=== PATIENT | female | born 1990 | race Caucasian/White ===

== ENCOUNTER 2018-06-10 13:27 | Emergency (ER) | payer MEDICAID ==
--- NOTE | 2018-06-10 13:54 | EDM.PDOC ---
ED HPI GENERAL MEDICAL PROBLEM - General Chief Complaint: ENT Problem Stated Complaint: COUGH AND SORE THROAT Time Seen by Provider: 06/10/18 13:39 Source of Information: Reports: Patient, RN Notes Reviewed History Limitations: Reports: No Limitations - History of Present Illness INITIAL COMMENTS - FREE TEXT/NARRATIVE: Patient is a 27-year-old female who presents to the ED today for the evaluation of a cough/sore throat. She states this is been going on for 1 week now. She states that her throat feels dry and has some sharp stabbing pains with this. She has also had a cough in conjunction with this. This is a dry cough. This is present most of the time it is not necessarily worsened by anything. She states she has not had a fever at home but has felt some hot/cold flashes. She has not get any sputum up with a cough, she further denies any chest pain or stomach pain. She notes some mild shortness of breath after the coughing but nothing that is too severe. She has been taking some DayQuil for this and it seems to help with some of the aches. She does not have any allergies to medications. She is a smoker with a half pack per day smoking history for 10 years. She would rate her pain at a 4 out of 10. Throat Pain Score (Numeric/FACES): 4 - Related Data Allergies Allergy/AdvReac Type Severity Reaction Status Date / Time No Known Allergies Allergy Verified 06/10/18 13:48 Home Meds: Home Meds FLUoxetine [PROzac] 20 mg PO BEDTIME 06/10/18 [History] lamoTRIgine [Lamotrigine] 400 mg PO DAILY 06/10/18 [History] ED ROS ENT - Review of Systems Review Of Systems: See Below Constitutional: Reports: Malaise. Denies: Fever, Chills HEENT: Reports: No Symptoms Respiratory: Reports: Shortness of Breath, Cough. Denies: Wheezing, Sputum Cardiovascular: Reports: No Symptoms Endocrine: Reports: No Symptoms GI/Abdominal: Reports: No Symptoms : Reports: No Symptoms Musculoskeletal: Reports: No Symptoms Skin: Reports: No Symptoms Neurological: Reports: No Symptoms Psychiatric: Reports: No Symptoms Hematologic/Lymphatic: Reports: No Symptoms Immunologic: Reports: No Symptoms ED EXAM, ENT - Physical Exam Exam: See Below Exam Limited By: No Limitations General Appearance: Alert, WD/WN, No Apparent Distress Eye Exam: Bilateral Eye: EOMI, Normal Inspection, PERRL Ears: Normal External Exam, Normal Canal, Hearing Grossly Normal, Normal TMs Nose: Normal Inspection, No Blood, Clear Rhinorrhea, Injected Turbinates (right sided) Mouth/Throat: Normal Inspection, Normal Gums, Normal Lips, Normal Oropharynx, Normal Teeth Head: Atraumatic, Normocephalic Neck: Normal Inspection, Supple, Non-Tender, Full Range of Motion Respiratory/Chest: No Respiratory Distress, Lungs Clear, Normal Breath Sounds, No Accessory Muscle Use, Chest Non-Tender Cardiovascular: Normal Peripheral Pulses, Regular Rate, Rhythm, No Murmur GI/Abdominal: Normal Bowel Sounds, Soft, Non-Tender, No Distention, No Mass Extremities: Normal Inspection, Normal Capillary Refill Neurological: Alert, Oriented, Normal Cognition, Normal Gait, No Motor/Sensory Deficits Psychiatric: Normal Affect, Normal Mood Skin: Warm, Dry, Intact, Normal Color, No Rash Course - Vital Signs Last Recorded V/S: Last Vital Signs Temp 98.8 F 06/10/18 13:44 Pulse 97 06/10/18 13:44 Resp 18 06/10/18 13:44 BP 126/91 H 06/10/18 13:44 Pulse Ox 95 06/10/18 13:44 - Orders/Labs/Meds Orders: Active Orders 24 hr Category Date Time Status CULTURE STREP A CONFIRMATION [] Stat Lab 06/10/18 13:50 Results STREP SCRN A RAPID W CULT CONF [RM] Stat Lab 06/10/18 13:50 Received - Re-Assessments/Exams Free Text/Narrative Re-Assessment/Exam: 06/10/18 14:16 Patient presents to the ED for the evaluation of a sore throat, cough area and a strep swab was obtained by triage nurse in the off chance she may have a strep infection, however, I believe that her sore throat may be due to her sinus drainage with postnasal drip and cough. We will discharge her home with general recommendations after we get the results of the strep swab. Departure - Departure Time of Disposition: 14:17 Disposition: Home, Self-Care 01 Condition: Fair Clinical Impression: Viral URI with cough, Sore throat (viral) - Discharge Information *PRESCRIPTION DRUG MONITORING PROGRAM REVIEWED*: No *COPY OF PRESCRIPTION DRUG MONITORING REPORT IN PATIENT OCTAVIO: No Instructions: Viral Respiratory Infection, [id number], Sore Throat, Easy-to- Read Referrals: PCP,Not In Area [Primary Care Provider] - Forms: ED Department Discharge Additional Instructions: You have been evaluated in the ED today for your cold like symptoms, cough, sore throat. This is likely a viral illness in etiology. Your strep screen was negative however it will be sent for culture for confirmation. You will be notified if you need further treatment for this. Please increase your fluid intake. Get plenty of rest as well. You should feel better in a few days. Recommend that you take some ldjh-vqk-[id number] nasal decongestants, cough/cold remedies to combat this. Medicines like NyQuil, DayQuil, phenylephrine and other sinus decongestants are adequate. If your symptoms are not better in one week's time recommend that you follow up in a clinic or your primary care provider. Please return to the ED if your symptoms change or worsen. - My Orders Last 24 Hours: My Active Orders 06/10/18 13:50 CULTURE STREP A CONFIRMATION [RM] Stat STREP SCRN A RAPID W CULT CONF [RM] Stat - Assessment/Plan Last 24 Hours: My Active Orders 06/10/18 13:50 CULTURE STREP A CONFIRMATION [RM] Stat STREP SCRN A RAPID W CULT CONF [RM] Stat
== END 2018-06-10 14:40 | disposition home or self-care (01) ==
LOC: JD.ED 13:27
DX: J02.9 Acute pharyngitis, unspecified (principal); Z79.899 Other long term (current) drug therapy
CPT/HCPCS: 87081; 87430; 99282; 99283

== ENCOUNTER 2018-06-17 04:30 | Emergency (ER) | payer MEDICAID ==
--- NOTE | 2018-06-17 04:55 | EDM.PDOC ---
ED HPI GENERAL MEDICAL PROBLEM - General Chief Complaint: ENT Problem Stated Complaint: sore throat cough congestion Time Seen by Provider: 06/17/18 04:39 Source of Information: Reports: Patient, Old Records (ED visit 06/10/2018) History Limitations: Reports: No Limitations - History of Present Illness INITIAL COMMENTS - FREE TEXT/NARRATIVE: Medical records indicate that the patient was seen in this ED one week ago today , 06/10/2018 with a complaint at that time of dry cough and sore throat for 1 week. She had not had a fever. Rapid strep test was negative, and she was discharged home with recommendation that she take gdbm-alb-lfyvczm cough and cold remedies. The patient now returns stating that her sore throat and cough have persisted, and that her sore throat got worse last night. She states that it is painful for her to swallow. She has had occasional ear pain, but no decreased hearing. She has still not had a fever. No nausea or abdominal pain. She states that she has been taking DayQuil, NyQuil, and Chloraseptic spray, without any relief. The patient states that she has tested positive for strep throat 4 or 5 times in the past. The patient does not have a PCP. Throat Pain Score (Numeric/FACES): 9 - Related Data Allergies Allergy/AdvReac Type Severity Reaction Status Date / Time No Known Allergies Allergy Verified 06/10/18 13:48 Home Meds: Home Meds FLUoxetine [PROzac] 20 mg PO BEDTIME 06/10/18 [History] lamoTRIgine [Lamotrigine] 400 mg PO DAILY 06/10/18 [History] Past Medical History Psychiatric History: Reports: Bipolar, Depression Endocrine/Metabolic History: Reports: Obesity/BMI 30+ - Past Surgical History HEENT Surgical History: Reports: Oral Surgery (wisdom teeth extraction) Female Surgical History: Reports: Oophorectomy (right) Social & Family History - Family History Family Medical History: Noncontributory - Tobacco Use Smoking Status *Q: Current Every Day Smoker Years of Tobacco use: 17 Packs/Tins Daily: 0.5 Packs/Tins Daily Comment: Down from 1 ppd - Caffeine Use Caffeine Use: Reports: Coffee, Tea - Alcohol Use Alcohol Use History: Yes Alcohol Use Frequency: Socially - Recreational Drug Use Recreational Drug Use: Yes Drug Use in Last 12 Months: No Recreational Drug Type: Reports: Cocaine (last snorted and smoked in 2005), Marijuana/Hashish (last smoked in 2005), Methamphetamine (last smoked in 2005) - Living Situation & Occupation Living situation: Reports: , with Spouse, with Family (3 kids) Occupation: Unemployed ED ROS GENERAL - Review of Systems Review Of Systems: ROS reveals no pertinent complaints other than HPI. ED EXAM, GENERAL - Physical Exam Exam: See Below Exam Limited By: No Limitations General Appearance: Alert, WD/WN, No Apparent Distress Eye Exam: Bilateral Eye: EOMI, Normal Inspection Ears: Normal External Exam, Normal Canal, Hearing Grossly Normal, Normal TMs Nose: Normal Inspection, Normal Mucosa, No Blood Throat/Mouth: Normal Inspection, Normal Lips, Normal Teeth, Normal Gums, Normal Oropharynx (No oropharyngeal erythema or swelling. No tonsillar exudates.), Normal Voice, No Airway Compromise Head: Atraumatic, Normocephalic Neck: Normal Inspection, Supple, Non-Tender, Full Range of Motion. No: Lymphadenopathy (L), Lymphadenopathy (R) Respiratory/Chest: No Respiratory Distress, Lungs Clear, Normal Breath Sounds, No Accessory Muscle Use Cardiovascular: Normal Peripheral Pulses, Regular Rate, Rhythm, No Gallop, No JVD, No Murmur, No Rub Peripheral Pulses: 4+: Radial (L), Radial (R) GI/Abdominal: Normal Bowel Sounds, Soft, Non-Tender, No Organomegaly, No Distention, No Abnormal Bruit, No Mass, Other (Obese) (Female) Exam: Deferred Rectal (Female) Exam: Deferred Back Exam: Normal Inspection, Full Range of Motion, NT Extremities: Normal Inspection, Normal Range of Motion, No Pedal Edema, Normal Capillary Refill Neurological: Alert, Oriented, Normal Cognition, No Motor/Sensory Deficits Psychiatric: Normal Affect Skin Exam: Warm, Dry, Intact, Normal Color, No Rash Course - Vital Signs Last Recorded V/S: Last Vital Signs Temp 36.5 C 06/17/18 04:41 Pulse 95 06/17/18 04:41 Resp 18 06/17/18 04:41 BP 157/100 H 06/17/18 04:41 Pulse Ox 95 06/17/18 04:41 - Orders/Labs/Meds Meds: Medications Discontinued Medications Generic Name Dose Route Start Last Admin Trade Name Freq PRN Reason Stop Dose Admin Penicillin G Benzathine 1.2 millunits 06/17/18 05:17 Bicillin L-A IM 06/17/18 05:18 ONETIME ONE - Re-Assessments/Exams Free Text/Narrative Re-Assessment/Exam: 06/17/18 05:24 The patient's rapid strep test has returned positive. I have ordered 1.2 million units of penicillin G benzathine. Because the patient states that she has had strep throat 4 or 5 times in the past, it is very possible that she is a strep carrier. I will therefore refer the patient to the clinic, with the recommendation that she have a repeat strep test in about 2 weeks, when she is feeling better. If that strep test returns positive, she is most likely a carrier, and should be referred to an Industrial Machine Operator for tonsillectomy. Departure - Departure Time of Disposition: 05:26 Disposition: Home, Self-Care 01 Condition: Fair Clinical Impression: Streptococcal pharyngitis - Discharge Information *PRESCRIPTION DRUG MONITORING PROGRAM REVIEWED*: Not Applicable *COPY OF PRESCRIPTION DRUG MONITORING REPORT IN PATIENT OCTAVIO: Not Applicable Referrals: Pato Luke PA [Physician Baking Assistant] - Forms: ED Department Discharge Additional Instructions: You were seen in the emergency room for a persistent sore throat and dry cough. Workup in the ER included a rapid strep test, which returned positive for strep throat. You were treated with an injection of penicillin G benzathine in the ER, which is a one-time treatment for strep throat. Take iins-rfx-[id number] ibuprofen, 2-3 tablets (400-600 mg) every 8 hours, with food, as needed for throat discomfort. You may also gargle with warm salt water. Because you have had strep throat 4 or 5 times in the past, we recommend that you follow-up with Dre Luke, or one of the other providers in the clinic, in approximately 2 weeks, when you are feeling better, to undergo a repeat strep test (make sure they swab your tonsils, not your throat). If that test returns positive, you are most likely a strep carrier, and should be referred to an Industrial Machine Operator for tonsillectomy. If any other problems, please do not hesitate to return to the ER.
[2018-06-17] MEDS ORDERED: Penicillin G Benzathine 1,200,000 Units/2 ML Syringe IM ONE (05:17)
== END 2018-06-17 05:40 | disposition home or self-care (01) ==
LOC: JD.ED 04:30
DX: J02.0 Streptococcal pharyngitis (principal); F17.210 Nicotine dependence, cigarettes, uncomplicated; Z79.899 Other long term (current) drug therapy
CPT/HCPCS: 87430; 96372; 99283; J0561

== ENCOUNTER 2018-08-15 07:49 | Inpatient (IN) | payer MEDICAID ==
[2018-08-15] MEDS ORDERED: Ondansetron 4 MG/2 ML SDV IVPUSH ONE (08:19)
--- NOTE | 2018-08-15 08:19 | EDM.PDOC ---
ED HPI GENERAL MEDICAL PROBLEM - General Chief Complaint: Abdominal Pain Stated Complaint: FEVER,VOMITING,ABDOMINAL PAIN Time Seen by Provider: 08/15/18 08:11 Source of Information: Reports: Patient History Limitations: Reports: No Limitations - History of Present Illness INITIAL COMMENTS - FREE TEXT/NARRATIVE: 27-year-old female presents to the ED with a history of fever and chills since August 12. She woke around 0430 hrs. this morning with spontaneous nausea and vomiting at least 5-6 times with some flecks of blood evident in the emesis the last 2 times. Emesis was for the most part ileus. Had no diarrhea. She's had diffuse mid and lower abdominal pain for the last 2 days. She can walk okay. Denies development of any diarrhea. Denies cough or sputum production. She is not been hardly able to eat much at all for 2 days. She feels lightheaded and dizzy upon standing. She states is a possibility she could be . Not real sure when her last normal menstrual period was. Is abdominal surgery was a right oophorectomy. Current pain is mostly right lower quadrant of the abdomen. Denies any dysuria urgency or frequency in the last week or 10 days. Onset: Sudden Onset Date: 08/12/18 (Acute onset of fever and chills.) Duration: Day(s):, Getting Worse, Waxing/Waning Location: Reports: Abdomen (Nausea vomiting of bilious material repetitively this morning with some flecks of blood. Right lower quadrant abdominal pain.) Quality: Reports: Other (Pain in the right lower quadrant is constant no colicky component.) Severity: Moderate Improves with: Reports: Rest Worsens with: Reports: Other (Worsens with vomiting.) Context: Reports: Other. Denies: Activity, Exercise, Lifting, Sick Contact, Trauma Associated Symptoms: Reports: Fever/Chills, Headaches (With riders.), Loss of Appetite, Malaise, Nausea/Vomiting (Bilious emesis 5 or 6 this morning with some flecks of blood in the last 2 emeses.), Weakness, Other. Denies: No Other Symptoms, Confusion, Chest Pain, Cough (Spontaneous occurrence.), cough w sputum , Diaphoresis, Rash, Seizure, Shortness of Breath, Syncope Treatments PEDIATRIC DERMATOLOGIST: Reports: Other (see below) (Very lightheaded and dizzy upon standing none.) Upper Abdominal Pain Score (Numeric/FACES): 3 - Related Data Allergies Allergy/AdvReac Type Severity Reaction Status Date / Time No Known Allergies Allergy Verified 08/15/18 08:07 Home Meds: Home Meds FLUoxetine [PROzac] 20 mg PO BEDTIME 06/10/18 [History] lamoTRIgine [Lamotrigine] 400 mg PO DAILY 06/10/18 [History] Past Medical History - Past Health History Medical/Surgical History: Denies Medical/Surgical History Psychiatric History: Reports: Bipolar, Depression Endocrine/Metabolic History: Reports: Obesity/BMI 30+ - Past Surgical History HEENT Surgical History: Reports: Oral Surgery Female Surgical History: Reports: Oophorectomy Social & Family History - Family History Family Medical History: Noncontributory - Tobacco Use Smoking Status *Q: Current Every Day Smoker Years of Tobacco use: 10 Packs/Tins Daily: 0.5 - Caffeine Use Caffeine Use: Reports: Coffee, Soda - Recreational Drug Use Recreational Drug Use: No - Living Situation & Occupation Living situation: Reports: , with Spouse, with Family (3 kids) Occupation: Unemployed ED ROS GENERAL - Review of Systems Review Of Systems: See Below Constitutional: Reports: Fever, Chills, Malaise, Weakness, Fatigue, Decreased Appetite, Weight Loss HEENT: Reports: Other Respiratory: Reports: No Symptoms (Dry mouth.) Cardiovascular: Reports: No Symptoms, Lightheadedness. Denies: Dyspnea on Exertion, Edema, Orthopnea, Palpitations, Syncope, Other Endocrine: Reports: Fatigue GI/Abdominal: Reports: Abdominal Pain (Epigastric and right lower quadrant of the abdomen.), Decreased Appetite, Nausea, Vomiting. Denies: Constipation, Diarrhea, Distension, Flatus, Hematemesis, Hematochezia, Other : Reports: No Symptoms Musculoskeletal: Reports: Muscle Pain (Generalized myalgia.) Skin: Reports: No Symptoms Neurological: Reports: Dizziness (With standing.), Weakness (Generalized weakness) Psychiatric: Reports: Other Hematologic/Lymphatic: Reports: No Symptoms Immunologic: Reports: No Symptoms ED EXAM, GI/ABD - Physical Exam Exam: See Below Exam Limited By: No Limitations General Appearance: Alert, WD/WN, No Apparent Distress, Other (She is cool to touch.) Eyes: Bilateral: Normal Appearance (No scleral icterus. No pallor) Throat/Mouth: Other (Tongue is extremely.dry and coated white.) Head: Atraumatic, Normocephalic Neck: Normal Inspection, Supple, Non-Tender, Full Range of Motion. No: Lymphadenopathy (L), Lymphadenopathy (R) Respiratory/Chest: No Respiratory Distress, Lungs Clear, Normal Breath Sounds, No Accessory Muscle Use, Chest Non-Tender Cardiovascular: Normal Peripheral Pulses, Regular Rate, Rhythm, No Edema, No Gallop, No Murmur, No Rub, Tachycardia (Resting tachycardia of 1 12/m.) GI/Abdominal Exam: Soft, No Organomegaly, No Distention, Tender, Abnormal Bowel Sounds (Bowel sounds are few and far between.). No: Guarding, Rigid ( Tenderness right lower quadrant abdomen with mild guarding. This is particularly noted at McBurney's point.), Rebound Back Exam: Normal Inspection, Full Range of Motion. No: CVA Tenderness (L), CVA Tenderness (R) Extremities: Normal Inspection, Normal Range of Motion, Non-Tender Neurological: Alert, Oriented, CN II-XII Intact, Normal Cognition Psychiatric: Normal Affect, Normal Mood Skin Exam: Dry, Intact, Normal Color, Cool (Cool to touch.) Course - Vital Signs Last Recorded V/S: Last Vital Signs Temp 36.9 C 08/15/18 08:04 Pulse 108 H 08/15/18 08:04 Resp 16 08/15/18 08:04 BP 107/84 08/15/18 08:04 Pulse Ox 96 08/15/18 08:04 Orthostatic Blood Pressure [ 107/69 Standing] Orthostatic Blood Pressure [ 103/64 Sitting] Orthostatic Blood Pressure [ 104/66 Supine] - Orders/Labs/Meds Orders: Active Orders 24 hr Category Date Time Status Admission Status [Patient Status] [ADT] Routine ADT 08/15/18 12:24 Active Orthostatic Vital Signs [RC] ASDIRECTED Care 08/15/18 08:29 Active CULTURE BLOOD [BC] Stat Lab 08/15/18 09:02 Received CULTURE BLOOD [BC] Stat Lab 08/15/18 09:12 Received CYTOMEGALOVIRUS (CMV) AB, IGM [REF] Stat Lab 08/15/18 11:00 Received EBV ACUTE INFECTION ANTIBODIES [REF] Stat Lab 08/15/18 12:35 Received HEPATITIS C ANTIBODY [CHEM] Stat Lab 08/15/18 09:02 Received HEPATITIS PANEL (4) [REF] Stat Lab 08/15/18 11:00 Received LIPASE [CHEM] Stat Lab 08/15/18 09:02 Received Dextrose 5%-0.9% NaCl [Dextrose 5%-Normal Saline] 1,000 Med 08/15/18 08:30 Active ml IV ASDIRECTED Dextrose 5%-Lact Ringers w/KCl [D5 LR with 20 mEq KCl] Med 08/15/18 12:30 Active 1,000 ml IV ASDIRECTED Dextrose 5%-Lactated Ringers 1,000 ml Med 08/15/18 10:45 Active IV ASDIRECTED Blood Culture x2 Reflex Set [OM.PC] Stat Oth 08/15/18 08:22 Ordered Medication Orders Dextrose/Sodium Chloride (Dextrose 5%-Normal Saline) 1,000 mls @ 999 mls/hr IV ASDIRECTED ROBEL Last Admin: 08/15/18 08:37 Dose: 999 mls/hr Dextrose/Lactated Ringer's (Dextrose 5%-Lactated Ringers) 1,000 mls @ 500 mls/ hr IV ASDIRECTED ROBEL Last Admin: 08/15/18 12:45 Dose: 500 mls/hr Potassium Cl/Dextrose/Lact Ringer's (D5 Lr With 20 Meq Kcl) 1,000 mls @ 150 mls /hr IV ASDIRECTED ROBEL Labs: Laboratory Tests 08/15/18 08/15/18 08/15/18 Range/Units 08:35 08:35 08:35 WBC 3.20 L (3.98-10.04) K/mm3 RBC 4.78 (3.98-5.22) M/mm3 Hgb 14.0 (11.2-15.7) gm/L Hct 42.2 (34.1-44.9) % MCV 88.3 (79.4-94.8) fl MCH 29.3 (25.6-32.2) pg MCHC 33.2 (32.2-35.5) g/dl RDW Std Deviation 45.2 (36.4-46.3) fL Plt Count 131 L (182-369) K/mm3 MPV 9.1 L (9.4-12.3) fl Neutrophils % (Manual) 75 H (40-60) % Band Neutrophils % 0 (0-10) % Lymphocytes % (Manual) 8 L (20-40) % Atypical Lymphs % 0 % Monocytes % (Manual) 15 H (2-10) % Eosinophils % (Manual) 2 (0.7-5.8) % Basophils % (Manual) 0 L (0.1-1.2) Platelet Estimate Adequate RBC Morph Comment Normal Sodium 137 (136-145) mEq/L Potassium 3.9 (3.5-5.1) mEq/L Chloride 103 (98-107) mEq/L Carbon Dioxide 22 (21-32) mEq/L Anion Gap 15.9 H (5-15) BUN 10 (7-18) mg/dL Creatinine 0.9 (0.55-1.02) mg/dL Est Cr Clr Drug Dosing 79.64 mL/min Estimated GFR (MDRD) > 60 (>60) mL/min BUN/Creatinine Ratio 11.1 L (14-18) Glucose 100 (74-106) mg/dL Lactic Acid (0.4-2.0) mmol/L Calcium 8.3 L (8.5-10.1) mg/dL Magnesium 1.7 L (1.8-2.4) mg/dl Total Bilirubin 0.5 (0.2-1.0) mg/dL AST 3682 H (15-37) U/L ALT 4248 H (14-59) U/L Alkaline Phosphatase 98 (46-116) U/L C-Reactive Protein 7.8 H* (<1.0) mg/dL Total Protein 7.0 (6.4-8.2) g/dl Albumin 3.1 L (3.4-5.0) g/dl Globulin 3.9 gm/dL Albumin/Globulin Ratio 0.8 L (1-2) HCG, Qual Negative (NEGATIVE) Urine Color (Yellow) Urine Appearance (Clear) Urine pH (5.0-8.0) Ur Specific [place] (1.005-1.030) Urine Protein (Negative) Urine Glucose (UA) (Negative) Urine Ketones (Negative) Urine Occult Blood (Negative) Urine Nitrite (Negative) Urine Bilirubin (Negative) Urine Urobilinogen (0.2-1.0) Ur Leukocyte Esterase (Negative) Urine RBC (0-5) /hpf Urine WBC (0-5) /hpf Ur Epithelial Cells (0-5) /hpf Urine Bacteria (FEW) /hpf Urine Mucus (FEW) /hpf Acetaminophen (10-30) ug/mL Ketones (0.0-0.3) mM Monoscreen (NEGATIVE) 08/15/18 08/15/18 08/15/18 Range/Units 08:35 08:35 09:02 WBC (3.98-10.04) K/mm3 RBC (3.98-5.22) M/mm3 Hgb (11.2-15.7) gm/L Hct (34.1-44.9) % MCV (79.4-94.8) fl MCH (25.6-32.2) pg MCHC (32.2-35.5) g/dl RDW Std Deviation (36.4-46.3) fL Plt Count (182-369) K/mm3 MPV (9.4-12.3) fl Neutrophils % (Manual) (40-60) % Band Neutrophils % (0-10) % Lymphocytes % (Manual) (20-40) % Atypical Lymphs % % Monocytes % (Manual) (2-10) % Eosinophils % (Manual) (0.7-5.8) % Basophils % (Manual) (0.1-1.2) Platelet Estimate RBC Morph Comment Sodium (136-145) mEq/L Potassium (3.5-5.1) mEq/L Chloride (98-107) mEq/L Carbon Dioxide (21-32) mEq/L Anion Gap (5-15) BUN (7-18) mg/dL Creatinine (0.55-1.02) mg/dL Est Cr Clr Drug Dosing mL/min Estimated GFR (MDRD) (>60) mL/min BUN/Creatinine Ratio (14-18) Glucose (74-106) mg/dL Lactic Acid 0.8 (0.4-2.0) mmol/L Calcium (8.5-10.1) mg/dL Magnesium (1.8-2.4) mg/dl Total Bilirubin (0.2-1.0) mg/dL AST (15-37) U/L ALT (14-59) U/L Alkaline Phosphatase (46-116) U/L C-Reactive Protein (<1.0) mg/dL Total Protein (6.4-8.2) g/dl Albumin (3.4-5.0) g/dl Globulin gm/dL Albumin/Globulin Ratio (1-2) HCG, Qual (NEGATIVE) Urine Color Yellow (Yellow) Urine Appearance Clear (Clear) Urine pH 6.0 (5.0-8.0) Ur Specific [place] 1.015 (1.005-1.030) Urine Protein 1+ H (Negative) Urine Glucose (UA) Negative (Negative) Urine Ketones 2+ H (Negative) Urine Occult Blood Trace-lysed H (Negative) Urine Nitrite Negative (Negative) Urine Bilirubin Negative (Negative) Urine Urobilinogen 0.2 (0.2-1.0) Ur Leukocyte Esterase 1+ H (Negative) Urine RBC 5-10 H (0-5) /hpf Urine WBC 30-40 H (0-5) /hpf Ur Epithelial Cells 20-30 H (0-5) /hpf Urine Bacteria Moderate H (FEW) /hpf Urine Mucus Few (FEW) /hpf Acetaminophen (10-30) ug/mL Ketones 0.6 (0.0-0.3) mM Monoscreen (NEGATIVE) 08/15/18 08/15/18 Range/Units 09:02 09:02 WBC (3.98-10.04) K/mm3 RBC (3.98-5.22) M/mm3 Hgb (11.2-15.7) gm/L Hct (34.1-44.9) % MCV (79.4-94.8) fl MCH (25.6-32.2) pg MCHC (32.2-35.5) g/dl RDW Std Deviation (36.4-46.3) fL Plt Count (182-369) K/mm3 MPV (9.4-12.3) fl Neutrophils % (Manual) (40-60) % Band Neutrophils % (0-10) % Lymphocytes % (Manual) (20-40) % Atypical Lymphs % % Monocytes % (Manual) (2-10) % Eosinophils % (Manual) (0.7-5.8) % Basophils % (Manual) (0.1-1.2) Platelet Estimate RBC Morph Comment Sodium (136-145) mEq/L Potassium (3.5-5.1) mEq/L Chloride (98-107) mEq/L Carbon Dioxide (21-32) mEq/L Anion Gap (5-15) BUN (7-18) mg/dL Creatinine (0.55-1.02) mg/dL Est Cr Clr Drug Dosing mL/min Estimated GFR (MDRD) (>60) mL/min BUN/Creatinine Ratio (14-18) Glucose (74-106) mg/dL Lactic Acid (0.4-2.0) mmol/L Calcium (8.5-10.1) mg/dL Magnesium (1.8-2.4) mg/dl Total Bilirubin (0.2-1.0) mg/dL AST (15-37) U/L ALT (14-59) U/L Alkaline Phosphatase (46-116) U/L C-Reactive Protein (<1.0) mg/dL Total Protein (6.4-8.2) g/dl Albumin (3.4-5.0) g/dl Globulin gm/dL Albumin/Globulin Ratio (1-2) HCG, Qual (NEGATIVE) Urine Color (Yellow) Urine Appearance (Clear) Urine pH (5.0-8.0) Ur Specific [place] (1.005-1.030) Urine Protein (Negative) Urine Glucose (UA) (Negative) Urine Ketones (Negative) Urine Occult Blood (Negative) Urine Nitrite (Negative) Urine Bilirubin (Negative) Urine Urobilinogen (0.2-1.0) Ur Leukocyte Esterase (Negative) Urine RBC (0-5) /hpf Urine WBC (0-5) /hpf Ur Epithelial Cells (0-5) /hpf Urine Bacteria (FEW) /hpf Urine Mucus (FEW) /hpf Acetaminophen 0 L (10-30) ug/mL Ketones (0.0-0.3) mM Monoscreen Negative (NEGATIVE) Meds: Medications Generic Name Dose Route Start Last Admin Trade Name Freq PRN Reason Stop Dose Admin Dextrose/Sodium Chloride 1,000 mls @ 999 mls/hr 08/15/18 08:30 08/15/18 08:37 Dextrose 5%-Normal Saline IV 999 mls/hr ASDIRECTED ROBEL Administration Dextrose/Lactated Ringer's 1,000 mls @ 500 mls/hr 08/15/18 10:45 08/15/18 12: 45 Dextrose 5%-Lactated Ringers IV 500 mls/hr ASDIRECTED ROBEL Administration Potassium Cl/Dextrose/Lact Ringer's 1,000 mls @ 150 mls/hr 08/15/18 12:30 D5 Lr With 20 Meq Kcl IV ASDIRECTED ROBEL Discontinued Medications Generic Name Dose Route Start Last Admin Trade Name Sander PRN Reason Stop Dose Admin Diatrizoate Meglum/Diatrizoate Sod 90 ml 08/15/18 11:31 08/15/18 11:40 Gastrografin 37% PO 08/15/18 11:32 90 ml ONETIME ONE Administration Hydromorphone HCl 0.5 mg 08/15/18 08:20 08/15/18 08:37 Dilaudid IVPUSH 08/15/18 08:21 0.5 mg ONETIME ONE Administration Hydromorphone HCl 0.5 mg 08/15/18 10:22 08/15/18 10:42 Dilaudid IVPUSH 08/15/18 10:23 0.5 mg ONETIME ONE Administration Iohexol 100 ml 08/15/18 11:31 08/15/18 11:38 Omnipaque-300 IVPUSH 08/15/18 11:32 100 ml ONETIME ONE Administration Metoclopramide HCl 7.5 mg 08/15/18 10:22 08/15/18 10:40 Reglan IVPUSH 08/15/18 10:23 7.5 mg ONETIME ONE Administration Nicotine 21 mg 08/15/18 12:26 Habitrol TRDERM 08/15/18 12:27 ONETIME ONE Ondansetron HCl 4 mg 08/15/18 08:19 08/15/18 08:35 Zofran IVPUSH 08/15/18 08:20 4 mg ONETIME ONE Administration Sodium Chloride 10 ml 08/15/18 11:31 08/15/18 11:40 Saline Flush FLUSH 08/15/18 11:32 10 ml ONETIME ONE Administration - Radiology Interpretation Free Text/Narrative:: 27-year-old female presents to the ED with a history of sudden onset of fever and chills on August 12. Has not felt well since. With intermittent fevers and occasional chills. She had rigors 2 days ago. Denies any genitourinary complaints. She began vomiting about 0430 hrs. this morning I merely bilious material with flecks of blood towards the end due to violent wretching. Has diffuse epigastric abdominal discomfort and right lower quadrant abdominal discomfort. Examination reveals her to be afebrile. She is acting quite cool to touch. Tongue is very dry and coated indicating significant bone depletion. She is moderately tender over McBurney's point with guarding but no rebound tenderness. Appendicitis is in the differential diagnosis. Plan septic workup will be carried out. IV will be D5 normal saline at open. Given Dilaudid 0.5 mg IV with Zofran 4 mg IV for nausea relief. Routine labs including blood cultures 2 will be obtained. Once we know for sure she is not she will have imaging of her chest and abdomen. - Re-Assessments/Exams Free Text/Narrative Re-Assessment/Exam: 08/15/18 10:16 Labs are now back showing a leukopenia with a white count of 3.20. Differential is 75% neutrophils and no band cells reported. Hemoglobin is 14.0 with hematocrit of 42.2. Platelet count is 131,000. There is mild increase in monocytes at 15%. Chemistry shows a sodium of 137 with a potassium of 3.9. Chloride is 103 with a bicarbonate of 22. Anion gap is mildly elevated at 15.9. The you and is 10. Creatinine is 0.9. GFR remains greater than 60. Glucose 100 with lactic acid of 0.8, calcium is 8.3. Magnesium is 1.7. Total bilirubin is 0.5. Transaminases are pending. Alkaline phosphatase is normal at 98. C- reactive protein is elevated at 7.8. Total protein is 7.0 with an albumin fraction low at 3.1. HCG is negative. Proceed with chest x-ray and CT of the abdomen. 08/15/18 10:23 patient advised of the findings of the lab work. We will proceed with chest x-ray and CT the abdomen with oral and IV contrast to rule out appendicitis. She has voided now. urine will be sent for analysis. Nausea is coming back to some degree and therefore I will repeat antinausea this time will be Reglan 7.5 mg IV. Pain is also coming back in the right lower quadrant and will repeat Dilaudid 0.[address] of the abdomen will be carried out to rule out appendicitis. Will hang second liter of IV D5 Ringer's lactate at 500 mils per hour. 08/15/18 10:44 Serum transaminases are now back in her markedly elevated with an AST of 3682 and ALT of 4248. This is strongly suggestive of a viral hepatitis. Therefore a viral hepatitis screen will be ordered with a Monospot and a cytomegalovirus screen. Ketones came back at 0.6. Patient states she takes occasional Tylenol tablets but nothing to excess. Does drink well water out of the form once in a while raising the possibility of potential hepatitis a infection. However she has no diarrhea. She probably has had hepatitis B vaccination carried out as she is age 27. His had never had a blood transfusion has never used intravenous drugs. 08/15/18 12:[address] Lauren program management professional hospitalist and the patient will be admitted to the [facility] surgery floor to follow her hepatic transaminases i.e. worsening versus getting better over the next few days. I will order a hepatitis C as we can get an answer back on this today. It's more likely that she has an alternative viral infection causing her acute hepatitis such as cytomegalovirus infection. However she can't eat and she is only voided once after 2 L of IV fluids. Third liter will be started at D5 normal saline with 20 mg of KCl per liter to run at 150 mils per hour. Mavis-Hess panel ordered. Urinalysis and waiting on the micro-. The dip revealed 1+ leukocyte esterase. Patient is a smoker and is requesting NicoDerm patch. This will be ordered 21 mg per day. 08/15/18 12:47 The micro-and the urine shows 1+ leukocyte esterase on the dip. However there are 5-10 RBCs and 30-40 white blood cells per high-power field identified. Urine bacteria moderate. Urine culture will be ordered. Patient WILL be started on an antibiotic for suspect urinary tract infection. Will hang Rocephin 2 g IV. Unfortunately just hung D5 Ringer's lactate which is not compatible with Rocephin. He'll be discontinued and replaced with D5 normal saline with 20 mg of KCl per liter to run at 150 mils per hour. Departure - Departure Time of Disposition: 12:55 Disposition: Admitted As Inpatient 64 Condition: Fair Clinical Impression: Acute hepatitis, Nausea and vomiting in adult patient Urinary tract infection Qualifiers: Urinary tract infection type: site unspecified Hematuria presence: without hematuria Qualified Code(s): N39.0 - Urinary tract infection, site not specified - Discharge Information *PRESCRIPTION DRUG MONITORING PROGRAM REVIEWED*: Not Applicable *COPY OF PRESCRIPTION DRUG MONITORING REPORT IN PATIENT OCTAVIO: Not Applicable Referrals: PCP,None [Primary Care Provider] - Forms: ED Department Discharge Additional Instructions: Patient will be admitted to the med surgery floor due to acute hepatitis of unclear origin. Associated urinary tract infection with fever and chills and rigors 3 days ago. Intractable nausea and vomiting. Unable to eat 2 and half days - My Orders Last 24 Hours: My Active Orders 08/15/18 08:22 Blood Culture x2 Reflex Set [OM.PC] Stat 08/15/18 08:29 Orthostatic Vital Signs [RC] ASDIRECTED 08/15/18 08:30 Dextrose 5%-0.9% NaCl [Dextrose 5%-Normal Saline] 1,000 ml IV ASDIRECTED 08/15/18 09:02 CULTURE BLOOD [BC] Stat HEPATITIS C ANTIBODY [CHEM] Stat LIPASE [CHEM] Stat 08/15/18 09:12 CULTURE BLOOD [BC] Stat 08/15/18 10:45 Dextrose 5%-Lactated Ringers 1,000 ml IV ASDIRECTED 08/15/18 11:00 CYTOMEGALOVIRUS (CMV) AB, IGM [REF] Stat HEPATITIS PANEL (4) [REF] Stat 08/15/18 12:24 Admission Status [Patient Status] [ADT] Routine 08/15/18 12:30 Dextrose 5%-Lact Ringers w/KCl [D5 LR with 20 mEq KCl] 1,000 ml IV ASDIRECTED 08/15/18 12:35 EBV ACUTE INFECTION ANTIBODIES [REF] Stat - Assessment/Plan Last 24 Hours: My Active Orders 08/15/18 08:22 Blood Culture x2 Reflex Set [OM.PC] Stat 08/15/18 08:29 Orthostatic Vital Signs [RC] ASDIRECTED 08/15/18 08:30 Dextrose 5%-0.9% NaCl [Dextrose 5%-Normal Saline] 1,000 ml IV ASDIRECTED 08/15/18 09:02 CULTURE BLOOD [BC] Stat HEPATITIS C ANTIBODY [CHEM] Stat LIPASE [CHEM] Stat 08/15/18 09:12 CULTURE BLOOD [BC] Stat 08/15/18 10:45 Dextrose 5%-Lactated Ringers 1,000 ml IV ASDIRECTED 08/15/18 11:00 CYTOMEGALOVIRUS (CMV) AB, IGM [REF] Stat HEPATITIS PANEL (4) [REF] Stat 08/15/18 12:24 Admission Status [Patient Status] [ADT] Routine 08/15/18 12:30 Dextrose 5%-Lact Ringers w/KCl [D5 LR with 20 mEq KCl] 1,000 ml IV ASDIRECTED 08/15/18 12:35 EBV ACUTE INFECTION ANTIBODIES [REF] Stat
[2018-08-15] MEDS ORDERED: HYDROmorphone 0.5 MG/0.5 ML Syringe IVPUSH ONE ×2 (08:20→10:22)
[2018-08-15] MEDS ORDERED: Dextrose 5%-0.9% NaCl 1,000 ML IV SCH (08:30)
[2018-08-15] MEDS ORDERED: Metoclopramide 10 MG/2 ML SDV IVPUSH ONE (10:22)
[2018-08-15] MEDS ORDERED: Dextrose 5%-Lactated Ringers 1,000 ML IV SCH (10:45)
[2018-08-15] MEDS ORDERED: Sodium Chloride 0.9% 10 ML Syringe FLUSH ONE (11:31)
[2018-08-15] MEDS ORDERED: Iohexol 647 MG/ML 100 ML Bottle IVPUSH ONE (11:31)
[2018-08-15] MEDS ORDERED: Diatrizoate Meglumine/Diatrizoate Sodium 37% 120 ML Bottle PO ONE (11:31)
--- NOTE | 2018-08-15 12:08 | CT ---
CT abdomen and pelvis Technique: Multiple axial sections were obtained from above the dome of the diaphragm inferiorly through the pubic symphysis. Intravenous and oral contrast was utilized. Comparison: No previous CT abdomen or pelvis exam. Findings: Small portion of the visualized lung bases shows nothing acute. Liver contains no focal parenchymal abnormality. Spleen appears within normal limits. Small amount of contrast reflux is noted into the distal esophagus. Adrenal glands show no nodule. Pancreas is within normal limits. Kidneys show symmetric contrast enhancement without hydronephrosis or mass. Aorta shows no aneurysm. No retroperitoneal adenopathy or mesenteric abnormalities are seen. Appendix is seen and is normal in size. No pelvic mass or adenopathy is seen. No free fluid or inflammatory change is seen. No bowel dilatation or bowel wall thickening is appreciated. 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 Impression: 1. Incidental findings. Nothing acute is appreciated on CT study of the abdomen and pelvis. Diagnostic code #2
--- NOTE | 2018-08-15 12:23 | CR ---
Chest: Portable view of the chest was obtained. Comparison: No previous chest x-ray. Heart size and mediastinum are normal. Lungs are clear. Bony structures are grossly intact. Impression: 1. Nothing acute is appreciated on portable chest x-ray. Diagnostic code #1
[2018-08-15] MEDS ORDERED: Nicotine 21 MG/24 Hr Patch TRDERM ONE ×2 (12:26→15:30)
[2018-08-15] MEDS ORDERED: Dextrose 5%-Lact Ringers w/KCl 1,000 ML IV SCH (12:30)
[2018-08-15] MEDS ORDERED: Dextrose 5%-0.9% NaCl with KCl 1,000 ML IV SCH (13:00)
[2018-08-15] MEDS ORDERED: cefTRIAXone 2 GM in Sodium Chloride 0.9% 100 ML IV SCH (13:00)
[2018-08-15] MEDS ORDERED: Ondansetron 4 MG Tab.DIS PO PRN (14:43)
--- NOTE | 2018-08-15 14:57 | PCM.HP ---
H&P History of Present Illness - General Date of Service: 08/15/18 Admit Problem/Dx: Admission Diagnosis/Problem Admission Diagnosis/Problem Acute hepatitis - History of Present Illness Initial Comments - Free Text/Narative: 27-year-old female is admitted through the ER with complaints of headache, muscle aches, and chills for the last 3 days. In the ER she was found to have elevated liver enzymes. Patient complains of mild nausea still and received Zofran 4 mg in the ER. She states that she has had off-and-on chills and on Monday she felt like she had electric shocks in her head. Today she started vomiting and that brought her to the emergency room. She has anxiety and depression and is on Prozac and Lamictal. She also has a history of Dieter' s. Patient denies any changes in her stools, diarrhea, constipation, or changes in urine. She denies any dysuria. Upper Abdominal Pain Score (Numeric/FACES): 3 - Related Data Allergies/Adverse Reactions: Allergies Allergy/AdvReac Type Severity Reaction Status Date / Time No Known Allergies Allergy Verified 08/15/18 08:07 Home Medications: Home Meds FLUoxetine [PROzac] 40 mg PO BEDTIME 06/10/18 [History] lamoTRIgine [Lamotrigine] 400 mg PO BEDTIME 06/10/18 [History] Past Medical History - Past Health History Medical/Surgical History: Denies Medical/Surgical History Respiratory History: Reports: Asthma Neurological History: Reports: Migraines Psychiatric History: Reports: Bipolar, Depression Endocrine/Metabolic History: Reports: Obesity/BMI 30+ Other Endocrine/Metabolic History: Hashimotos- thyroid disorder - Infectious Disease History Infectious Disease History: Reports: Chicken Pox, Mononucleosis - Past Surgical History HEENT Surgical History: Reports: Oral Surgery Female Surgical History: Reports: Oophorectomy Social & Family History - Family History Family Medical History: Noncontributory Oncologic: Reports: Breast Other Oncologic Family History: mother anal cancer, grandma breast cancer, maternal grandmother sister, grandpa sinus cancer - Tobacco Use Smoking Status *Q: Current Every Day Smoker Years of Tobacco use: 10 Packs/Tins Daily: 0.5 Used Tobacco, but Quit: No Second Hand Smoke Exposure: Yes - Caffeine Use Caffeine Use: Reports: Coffee, Soda Other Caffeine Use: Half a pot of coffee per day - Alcohol Use Days Per Week of Alcohol Use: 1 Number of Drinks Per Day: 2 Total Drinks Per Week: 2 Date of Last Drink: 08/10/18 Time of Last Drink: 18:00 - Recreational Drug Use Recreational Drug Use: No - Living Situation & Occupation Living situation: Reports: , with Spouse, with Family (3 kids) Occupation: Unemployed H&P Review of Systems - Review of Systems: Review Of Systems: ROS reveals no pertinent complaints other than HPI. Exam - Exam Exam: See Below - Vital Signs Vital Signs: Last Vital Signs Temp 98.5 F 08/15/18 08:04 Pulse 108 H 08/15/18 08:04 Resp 16 08/15/18 08:04 BP 107/84 08/15/18 08:04 Pulse Ox 96 08/15/18 08:04 Orthostatic Blood Pressure [ 107/69 Standing] Orthostatic Blood Pressure [ 103/64 Sitting] Orthostatic Blood Pressure [ 104/66 Supine] Weight: 223 lb 14.4 oz - Exam General: Alert, Oriented, Severe Distress HEENT: Mucosa Moist & [place], Posterior Pharynx Clear Neck: Supple, Trachea Midline Lungs: Clear to Auscultation, Normal Respiratory Effort Cardiovascular: Regular Rate, Regular Rhythm GI/Abdominal Exam: Normal Bowel Sounds, Soft, No Distention, Tender (Mild epigastric and right upper quadrant tenderness.) Extremities: Normal Inspection, Normal Range of Motion, Non-Tender, No Pedal Edema Neuro Extensive - Motor, Sensory, Reflexes: CN II-XII Intact Psychiatric: Alert, Normal Affect, Normal Mood - Patient Data Lab Results Last 24 hrs: Laboratory Results - last 24 hr 08/15/18 08/15/18 08/15/18 Range/Units 08:35 08:35 08:35 WBC 3.20 L (3.98-10.04) K/mm3 RBC 4.78 (3.98-5.22) M/mm3 Hgb 14.0 (11.2-15.7) gm/L Hct 42.2 (34.1-44.9) % MCV 88.3 (79.4-94.8) fl MCH 29.3 (25.6-32.2) pg MCHC 33.2 (32.2-35.5) g/dl RDW Std Deviation 45.2 (36.4-46.3) fL Plt Count 131 L (182-369) K/mm3 MPV 9.1 L (9.4-12.3) fl Neutrophils % (Manual) 75 H (40-60) % Band Neutrophils % 0 (0-10) % Lymphocytes % (Manual) 8 L (20-40) % Atypical Lymphs % 0 % Monocytes % (Manual) 15 H (2-10) % Eosinophils % (Manual) 2 (0.7-5.8) % Basophils % (Manual) 0 L (0.1-1.2) Platelet Estimate Adequate RBC Morph Comment Normal Sodium 137 (136-145) mEq/L Potassium 3.9 (3.5-5.1) mEq/L Chloride 103 (98-107) mEq/L Carbon Dioxide 22 (21-32) mEq/L Anion Gap 15.9 H (5-15) BUN 10 (7-18) mg/dL Creatinine 0.9 (0.55-1.02) mg/dL Est Cr Clr Drug Dosing 79.64 mL/min Estimated GFR (MDRD) > 60 (>60) mL/min BUN/Creatinine Ratio 11.1 L (14-18) Glucose 100 (74-106) mg/dL Lactic Acid (0.4-2.0) mmol/L Calcium 8.3 L (8.5-10.1) mg/dL Magnesium 1.7 L (1.8-2.4) mg/dl Total Bilirubin 0.5 (0.2-1.0) mg/dL AST 3682 H (15-37) U/L ALT 4248 H (14-59) U/L Alkaline Phosphatase 98 (46-116) U/L C-Reactive Protein 7.8 H* (<1.0) mg/dL Total Protein 7.0 (6.4-8.2) g/dl Albumin 3.1 L (3.4-5.0) g/dl Globulin 3.9 gm/dL Albumin/Globulin Ratio 0.8 L (1-2) Lipase (73-393) U/L HCG, Qual Negative (NEGATIVE) Urine Color (Yellow) Urine Appearance (Clear) Urine pH (5.0-8.0) Ur Specific [place] (1.005-1.030) Urine Protein (Negative) Urine Glucose (UA) (Negative) Urine Ketones (Negative) Urine Occult Blood (Negative) Urine Nitrite (Negative) Urine Bilirubin (Negative) Urine Urobilinogen (0.2-1.0) Ur Leukocyte Esterase (Negative) Urine RBC (0-5) /hpf Urine WBC (0-5) /hpf Ur Epithelial Cells (0-5) /hpf Urine Bacteria (FEW) /hpf Urine Mucus (FEW) /hpf Acetaminophen (10-30) ug/mL Ketones (0.0-0.3) mM Hepatitis C Antibody (NEGATIVE) Monoscreen (NEGATIVE) 08/15/18 08/15/18 08/15/18 Range/Units 08:35 08:35 09:02 WBC (3.98-10.04) K/mm3 RBC (3.98-5.22) M/mm3 Hgb (11.2-15.7) gm/L Hct (34.1-44.9) % MCV (79.4-94.8) fl MCH (25.6-32.2) pg MCHC (32.2-35.5) g/dl RDW Std Deviation (36.4-46.3) fL Plt Count (182-369) K/mm3 MPV (9.4-12.3) fl Neutrophils % (Manual) (40-60) % Band Neutrophils % (0-10) % Lymphocytes % (Manual) (20-40) % Atypical Lymphs % % Monocytes % (Manual) (2-10) % Eosinophils % (Manual) (0.7-5.8) % Basophils % (Manual) (0.1-1.2) Platelet Estimate RBC Morph Comment Sodium (136-145) mEq/L Potassium (3.5-5.1) mEq/L Chloride (98-107) mEq/L Carbon Dioxide (21-32) mEq/L Anion Gap (5-15) BUN (7-18) mg/dL Creatinine (0.55-1.02) mg/dL Est Cr Clr Drug Dosing mL/min Estimated GFR (MDRD) (>60) mL/min BUN/Creatinine Ratio (14-18) Glucose (74-106) mg/dL Lactic Acid 0.8 (0.4-2.0) mmol/L Calcium (8.5-10.1) mg/dL Magnesium (1.8-2.4) mg/dl Total Bilirubin (0.2-1.0) mg/dL AST (15-37) U/L ALT (14-59) U/L Alkaline Phosphatase (46-116) U/L C-Reactive Protein (<1.0) mg/dL Total Protein (6.4-8.2) g/dl Albumin (3.4-5.0) g/dl Globulin gm/dL Albumin/Globulin Ratio (1-2) Lipase (73-393) U/L HCG, Qual (NEGATIVE) Urine Color Yellow (Yellow) Urine Appearance Clear (Clear) Urine pH 6.0 (5.0-8.0) Ur Specific [place] 1.015 (1.005-1.030) Urine Protein 1+ H (Negative) Urine Glucose (UA) Negative (Negative) Urine Ketones 2+ H (Negative) Urine Occult Blood Trace-lysed H (Negative) Urine Nitrite Negative (Negative) Urine Bilirubin Negative (Negative) Urine Urobilinogen 0.2 (0.2-1.0) Ur Leukocyte Esterase 1+ H (Negative) Urine RBC 5-10 H (0-5) /hpf Urine WBC 30-40 H (0-5) /hpf Ur Epithelial Cells 20-30 H (0-5) /hpf Urine Bacteria Moderate H (FEW) /hpf Urine Mucus Few (FEW) /hpf Acetaminophen (10-30) ug/mL Ketones 0.6 (0.0-0.3) mM Hepatitis C Antibody (NEGATIVE) Monoscreen (NEGATIVE) 08/15/18 08/15/18 08/15/18 Range/Units 09:02 09:02 09:02 WBC (3.98-10.04) K/mm3 RBC (3.98-5.22) M/mm3 Hgb (11.2-15.7) gm/L Hct (34.1-44.9) % MCV (79.4-94.8) fl MCH (25.6-32.2) pg MCHC (32.2-35.5) g/dl RDW Std Deviation (36.4-46.3) fL Plt Count (182-369) K/mm3 MPV (9.4-12.3) fl Neutrophils % (Manual) (40-60) % Band Neutrophils % (0-10) % Lymphocytes % (Manual) (20-40) % Atypical Lymphs % % Monocytes % (Manual) (2-10) % Eosinophils % (Manual) (0.7-5.8) % Basophils % (Manual) (0.1-1.2) Platelet Estimate RBC Morph Comment Sodium (136-145) mEq/L Potassium (3.5-5.1) mEq/L Chloride (98-107) mEq/L Carbon Dioxide (21-32) mEq/L Anion Gap (5-15) BUN (7-18) mg/dL Creatinine (0.55-1.02) mg/dL Est Cr Clr Drug Dosing mL/min Estimated GFR (MDRD) (>60) mL/min BUN/Creatinine Ratio (14-18) Glucose (74-106) mg/dL Lactic Acid (0.4-2.0) mmol/L Calcium (8.5-10.1) mg/dL Magnesium (1.8-2.4) mg/dl Total Bilirubin (0.2-1.0) mg/dL AST (15-37) U/L ALT (14-59) U/L Alkaline Phosphatase (46-116) U/L C-Reactive Protein (<1.0) mg/dL Total Protein (6.4-8.2) g/dl Albumin (3.4-5.0) g/dl Globulin gm/dL Albumin/Globulin Ratio (1-2) Lipase 53 L (73-393) U/L HCG, Qual (NEGATIVE) Urine Color (Yellow) Urine Appearance (Clear) Urine pH (5.0-8.0) Ur Specific [place] (1.005-1.030) Urine Protein (Negative) Urine Glucose (UA) (Negative) Urine Ketones (Negative) Urine Occult Blood (Negative) Urine Nitrite (Negative) Urine Bilirubin (Negative) Urine Urobilinogen (0.2-1.0) Ur Leukocyte Esterase (Negative) Urine RBC (0-5) /hpf Urine WBC (0-5) /hpf Ur Epithelial Cells (0-5) /hpf Urine Bacteria (FEW) /hpf Urine Mucus (FEW) /hpf Acetaminophen 0 L (10-30) ug/mL Ketones (0.0-0.3) mM Hepatitis C Antibody (NEGATIVE) Monoscreen Negative (NEGATIVE) 08/15/18 Range/Units 09:02 WBC (3.98-10.04) K/mm3 RBC (3.98-5.22) M/mm3 Hgb (11.2-15.7) gm/L Hct (34.1-44.9) % MCV (79.4-94.8) fl MCH (25.6-32.2) pg MCHC (32.2-35.5) g/dl RDW Std Deviation (36.4-46.3) fL Plt Count (182-369) K/mm3 MPV (9.4-12.3) fl Neutrophils % (Manual) (40-60) % Band Neutrophils % (0-10) % Lymphocytes % (Manual) (20-40) % Atypical Lymphs % % Monocytes % (Manual) (2-10) % Eosinophils % (Manual) (0.7-5.8) % Basophils % (Manual) (0.1-1.2) Platelet Estimate RBC Morph Comment Sodium (136-145) mEq/L Potassium (3.5-5.1) mEq/L Chloride (98-107) mEq/L Carbon Dioxide (21-32) mEq/L Anion Gap (5-15) BUN (7-18) mg/dL Creatinine (0.55-1.02) mg/dL Est Cr Clr Drug Dosing mL/min Estimated GFR (MDRD) (>60) mL/min BUN/Creatinine Ratio (14-18) Glucose (74-106) mg/dL Lactic Acid (0.4-2.0) mmol/L Calcium (8.5-10.1) mg/dL Magnesium (1.8-2.4) mg/dl Total Bilirubin (0.2-1.0) mg/dL AST (15-37) U/L ALT (14-59) U/L Alkaline Phosphatase (46-116) U/L C-Reactive Protein (<1.0) mg/dL Total Protein (6.4-8.2) g/dl Albumin (3.4-5.0) g/dl Globulin gm/dL Albumin/Globulin Ratio (1-2) Lipase (73-393) U/L HCG, Qual (NEGATIVE) Urine Color (Yellow) Urine Appearance (Clear) Urine pH (5.0-8.0) Ur Specific [place] (1.005-1.030) Urine Protein (Negative) Urine Glucose (UA) (Negative) Urine Ketones (Negative) Urine Occult Blood (Negative) Urine Nitrite (Negative) Urine Bilirubin (Negative) Urine Urobilinogen (0.2-1.0) Ur Leukocyte Esterase (Negative) Urine RBC (0-5) /hpf Urine WBC (0-5) /hpf Ur Epithelial Cells (0-5) /hpf Urine Bacteria (FEW) /hpf Urine Mucus (FEW) /hpf Acetaminophen (10-30) ug/mL Ketones (0.0-0.3) mM Hepatitis C Antibody Negative (NEGATIVE) Monoscreen (NEGATIVE) Result Diagrams: 08/15/18 08:35 08/15/18 08:35 - Problem List (1) Acute hepatitis SNOMED Code(s): 38504893 ICD Code: B17.9 - ACUTE VIRAL HEPATITIS, UNSPECIFIED Status: Acute Current Visit: Yes (2) Nausea and vomiting in adult patient SNOMED Code(s): 61097487 ICD Code: R11.2 - NAUSEA WITH VOMITING, UNSPECIFIED Status: Acute Current Visit: Yes Problem List Initiated/Reviewed/Updated: Yes Orders Last 24hrs: Active Orders 24 hr Category Date Time Status Admission Status [Patient Status] [ADT] Routine ADT 08/15/18 12:24 Active Orthostatic Vital Signs [RC] ASDIRECTED Care 08/15/18 08:29 Active Oxygen Therapy [RC] PRN Care 08/15/18 14:43 Ordered VTE/DVT Education [RC] PER UNIT ROUTINE Care 08/15/18 14:43 Ordered Vital Signs [RC] Q4H Care 08/15/18 14:43 Ordered Full Liquid Diet [DIET] Diet 08/15/18 Dinner Ordered ACTIN (SMOOTH MUSCLE) AB [REF] Routine Lab 08/15/18 16:30 Ordered VIPUL W/REFLEX [REF] Routine Lab 08/15/18 16:30 Ordered COMPREHENSIVE METABOLIC PN,CMP [CHEM] Timed Lab 08/15/18 16:30 Ordered CULTURE BLOOD [BC] Stat Lab 08/15/18 09:02 Received CULTURE BLOOD [BC] Stat Lab 08/15/18 09:12 Received CULTURE URINE [RM] Stat Lab 08/15/18 08:35 Received CYTOMEGALOVIRUS (CMV) AB, IGM [REF] Stat Lab 08/15/18 11:00 Received EBV ACUTE INFECTION ANTIBODIES [REF] Stat Lab 08/15/18 12:35 Received HEPATITIS PANEL (4) [REF] Stat Lab 08/15/18 11:00 Received UA W/MICROSCOPIC [URIN] Routine Lab 08/15/18 13:51 Ordered Dextrose 5%-0.9% NaCl [Dextrose 5%-Normal Saline] 1,000 Med 08/15/18 08:30 Active ml IV ASDIRECTED Dextrose 5%-0.9% NaCl with KCl [D5 NS with 20 mEq KCl] Med 08/15/18 13:00 Active 1,000 ml IV ASDIRECTED Dextrose 5%-Lactated Ringers 1,000 ml Med 08/15/18 10:45 Active IV ASDIRECTED Ondansetron [Zofran ODT] Med 08/15/18 14:43 Ordered 4 mg PO Q4H PRN cefTRIAXone [Rocephin] 2 gm Med 08/15/18 13:00 Active Sodium Chloride 0.9% [Normal Saline] 100 ml IV Q24H lamoTRIgine Med 08/15/18 21:00 Ordered 400 mg PO BEDTIME Blood Culture x2 Reflex Set [OM.PC] Stat Oth 08/15/18 08:22 Ordered Resuscitation Status Routine Resus Stat 08/15/18 14:43 Ordered Medication Orders Dextrose/Sodium Chloride (Dextrose 5%-Normal Saline) 1,000 mls @ 999 mls/hr IV ASDIRECTED ROBEL Last Admin: 08/15/18 08:37 Dose: 999 mls/hr Dextrose/Lactated Ringer's (Dextrose 5%-Lactated Ringers) 1,000 mls @ 500 mls/ hr IV ASDIRECTED ROBEL Last Admin: 08/15/18 12:45 Dose: 500 mls/hr Ceftriaxone Sodium 2 gm/ (Sodium Chloride) 100 mls @ 200 mls/hr IV Q24H ROBEL Potassium Chloride/Dextrose/Sod Cl (D5 Ns With 20 Meq Kcl) 1,000 mls @ 150 mls/ hr IV ASDIRECTED ROBEL Lamotrigine (Lamotrigine) 400 mg PO BEDTIME ROBEL Ondansetron HCl (Zofran Odt) 4 mg PO Q4H PRN PRN Reason: nausea, able to take PO Assessment/Plan Comment:: Continue hydration with D5 LR at 150 mL an hour. Advance diet as tolerated. Get viral hepatitis panel, CMV, VIPUL, anti-smooth muscle antibody. May discharge tonight if liver enzymes are trending down and she is able to tolerate by mouth. Patient will need further evaluation as an outpatient and follow-up of the above labs and labs in the ER.
[2018-08-15] MEDS ORDERED: Sodium Chloride 0.9% 10 ML Syringe FLUSH PRN (15:18)
[2018-08-15] MEDS ORDERED: Magnesium Sulfate/Water 2 GM in Premix Bag 1 BAG IV ONE (15:25)
[2018-08-15] MEDS: oxyCODONE 5 MG Tab PO PRN (20:50)
[2018-08-15] MEDS ORDERED: lamoTRIgine 100 MG Tab PO SCH (21:00)
[2018-08-16] MEDS: oxyCODONE 5 MG Tab PO PRN (05:32)
--- NOTE | 2018-08-16 08:56 | PCM.DCSUM1 ---
Discharge Summary - Hospital Course HPI Initial Comments: 27-year-old female is admitted through the ER with complaints of headache, muscle aches, and chills for the last 3 days. In the ER she was found to have elevated liver enzymes. Patient complains of mild nausea still and received Zofran 4 mg in the ER. She states that she has had off-and-on chills and on Monday she felt like she had electric shocks in her head. Today she started vomiting and that brought her to the emergency room. She has anxiety and depression and is on Prozac and Lamictal. She also has a history of Dieter' s. Patient denies any changes in her stools, diarrhea, constipation, or changes in urine. She denies any dysuria. Diagnosis: Stroke: No - Discharge Data Discharge Date: 08/16/18 Discharge Disposition: Home, Self-Care 01 Condition: Good - Discharge Diagnosis/Problem(s) (1) Acute hepatitis SNOMED Code(s): 33335251 ICD Code: B17.9 - ACUTE VIRAL HEPATITIS, UNSPECIFIED Status: Acute Current Visit: Yes (2) Nausea and vomiting in adult patient SNOMED Code(s): 00321283 ICD Code: R11.2 - NAUSEA WITH VOMITING, UNSPECIFIED Status: Acute Current Visit: Yes (3) Headache SNOMED Code(s): 92551701 ICD Code: R51 - HEADACHE Status: Acute Current Visit: Yes Qualifiers: Headache type: tension-type - Patient Instructions Diet: Usual Diet as Tolerated Activity: As Tolerated Driving: May Drive Today Showering/Bathing: May Shower Notify Provider of: Fever, Increased Pain, Nausea and/or Vomiting Other/Special Instructions: Follow-up tomorrow with her PCP in [place]. He will need a liver function panel to check your liver enzymes. When you return to [place] please establish with a primary care provider. A rare idiosyncratic reaction can occur with fluoxetine in which it increases liver enzymes. Although this is unlikely to have caused your elevation in your liver enzymes I would recommend switching to a different SSRI. Celexa was sent to [facility]. - Discharge Plan *PRESCRIPTION DRUG MONITORING PROGRAM REVIEWED*: Not Applicable *COPY OF PRESCRIPTION DRUG MONITORING REPORT IN PATIENT OCTAVIO: Not Applicable Prescriptions/Med Rec: Citalopram Hydrobromide [Celexa] 20 mg PO DAILY #30 tablet RX: lamoTRIgine [Lamotrigine] 400 mg PO BEDTIME #120 tablet RX: oxyCODONE 5 mg PO Q6H PRN #4 tablet PRN Reason: Pain (Moderate 4-6) Home Medications: Home Meds Citalopram Hydrobromide [Celexa] 20 mg PO DAILY #30 tablet 08/16/18 [Rx] RX: lamoTRIgine [Lamotrigine] 400 mg PO BEDTIME #120 tablet 08/16/18 [Rx] RX: oxyCODONE 5 mg PO Q6H PRN #4 tablet 08/16/18 [Rx] Oxygen Therapy Mode: Room Air Patient Handouts: Liver Function Tests, Steps to Quit Smoking Forms: ED Department Discharge Referrals: PCP,None [Primary Care Provider] - - Discharge Summary/Plan Comment DC Time >30 min.: Yes Discharge Summary/Plan Comment: Follow-up tomorrow with her PCP in [place]. She will need a liver function panel to check liver enzymes. When you return to [place] please establish with a primary care provider. A rare idiosyncratic reaction can occur with fluoxetine in which it increases liver enzymes. Although this is unlikely to have caused your elevation in your liver enzymes I would recommend switching to a different SSRI. Celexa was sent to [facility]. patient was also sent home with oxycodone 5 mg 1 tab every 6 hours when necessary pain #4. I would like her to not take ibuprofen or Tylenol until her liver enzymes improved. - General Info Date of Service: 08/16/18 Admission Dx/Problem (Free Text: Admission Diagnosis/Problem Admission Diagnosis/Problem Acute hepatitis Subjective Update: patient did well overnight other than a headache. Liver enzymes are decreasing and right upper quadrant ultrasound showed no gallstones or common bile duct dilatation. Patient will be discharged home today to follow up with PCP tomorrow. Functional Status: Denies: Pain Controlled - Review of Systems General: Reports: Fatigue HEENT: Reports: No Symptoms Pulmonary: Reports: No Symptoms Cardiovascular: Reports: No Symptoms. Denies: Chest Pain, Palpitations Gastrointestinal: Reports: No Symptoms. Denies: Abdominal Pain, Constipation - Patient Data Vitals - Most Recent: Last Vital Signs Temp 98.1 F 08/16/18 05:22 Pulse 86 08/16/18 05:22 Resp 18 08/16/18 05:22 BP 111/59 L 08/16/18 05:22 Pulse Ox 97 08/16/18 05:22 Orthostatic Blood Pressure [ 107/69 Standing] Orthostatic Blood Pressure [ 103/64 Sitting] Orthostatic Blood Pressure [ 104/66 Supine] Weight - Most Recent: 220 lb 2 oz I&O - Last 24 hours: Intake & Output 08/15/18 08/16/18 08/16/18 22:59 06:59 14:59 Intake Total 1445 400 Balance 1445 400 Lab Results - Last 24 hrs: Laboratory Results - last 24 hr 08/15/18 08/15/18 08/15/18 Range/Units 08:35 08:35 08:35 WBC 3.20 L (3.98-10.04) K/mm3 RBC 4.78 (3.98-5.22) M/mm3 Hgb 14.0 (11.2-15.7) gm/L Hct 42.2 (34.1-44.9) % MCV 88.3 (79.4-94.8) fl MCH 29.3 (25.6-32.2) pg MCHC 33.2 (32.2-35.5) g/dl RDW Std Deviation 45.2 (36.4-46.3) fL Plt Count 131 L (182-369) K/mm3 MPV 9.1 L (9.4-12.3) fl Neut % (Auto) (34.0-71.1) % Lymph % (Auto) (19.3-51.7) % [place] % (Auto) (4.7-12.5) % Eos % (Auto) (0.7-5.8) Baso % (Auto) (0.1-1.2) % Neut # (Auto) (1.56-6.13) K/mm3 Lymph # (Auto) (1.18-3.74) K/mm3 [place] # (Auto) (0.24-0.36) K/mm3 Eos # (Auto) (0.04-0.36) K/mm3 Baso # (Auto) (0.01-0.08) K/mm3 Neutrophils % (Manual) 75 H (40-60) % Band Neutrophils % 0 (0-10) % Lymphocytes % (Manual) 8 L (20-40) % Atypical Lymphs % 0 % Monocytes % (Manual) 15 H (2-10) % Eosinophils % (Manual) 2 (0.7-5.8) % Basophils % (Manual) 0 L (0.1-1.2) Manual Slide Review Platelet Estimate Adequate RBC Morph Comment Normal Sodium 137 (136-145) mEq/L Potassium 3.9 (3.5-5.1) mEq/L Chloride 103 (98-107) mEq/L Carbon Dioxide 22 (21-32) mEq/L Anion Gap 15.9 H (5-15) BUN 10 (7-18) mg/dL Creatinine 0.9 (0.55-1.02) mg/dL Est Cr Clr Drug Dosing 79.64 mL/min Estimated GFR (MDRD) > 60 (>60) mL/min BUN/Creatinine Ratio 11.1 L (14-18) Glucose 100 (74-106) mg/dL Lactic Acid (0.4-2.0) mmol/L Calcium 8.3 L (8.5-10.1) mg/dL Magnesium 1.7 L (1.8-2.4) mg/dl Total Bilirubin 0.5 (0.2-1.0) mg/dL AST 3682 H (15-37) U/L ALT 4248 H (14-59) U/L Alkaline Phosphatase 98 (46-116) U/L C-Reactive Protein 7.8 H* (<1.0) mg/dL Total Protein 7.0 (6.4-8.2) g/dl Albumin 3.1 L (3.4-5.0) g/dl Globulin 3.9 gm/dL Albumin/Globulin Ratio 0.8 L (1-2) Lipase (73-393) U/L HCG, Qual Negative (NEGATIVE) Urine Color (Yellow) Urine Appearance (Clear) Urine pH (5.0-8.0) Ur Specific [place] (1.005-1.030) Urine Protein (Negative) Urine Glucose (UA) (Negative) Urine Ketones (Negative) Urine Occult Blood (Negative) Urine Nitrite (Negative) Urine Bilirubin (Negative) Urine Urobilinogen (0.2-1.0) Ur Leukocyte Esterase (Negative) Urine RBC (0-5) /hpf Urine WBC (0-5) /hpf Ur Epithelial Cells (0-5) /hpf Ur Squamous Epith Cells (0-5) /hpf Urine Bacteria (FEW) /hpf Urine Mucus (FEW) /hpf Acetaminophen (10-30) ug/mL Ketones (0.0-0.3) mM Hepatitis C Antibody (NEGATIVE) Monoscreen (NEGATIVE) 08/15/18 08/15/18 08/15/18 Range/Units 08:35 08:35 09:02 WBC (3.98-10.04) K/mm3 RBC (3.98-5.22) M/mm3 Hgb (11.2-15.7) gm/L Hct (34.1-44.9) % MCV (79.4-94.8) fl MCH (25.6-32.2) pg MCHC (32.2-35.5) g/dl RDW Std Deviation (36.4-46.3) fL Plt Count (182-369) K/mm3 MPV (9.4-12.3) fl Neut % (Auto) (34.0-71.1) % Lymph % (Auto) (19.3-51.7) % [place] % (Auto) (4.7-12.5) % Eos % (Auto) (0.7-5.8) Baso % (Auto) (0.1-1.2) % Neut # (Auto) (1.56-6.13) K/mm3 Lymph # (Auto) (1.18-3.74) K/mm3 [place] # (Auto) (0.24-0.36) K/mm3 Eos # (Auto) (0.04-0.36) K/mm3 Baso # (Auto) (0.01-0.08) K/mm3 Neutrophils % (Manual) (40-60) % Band Neutrophils % (0-10) % Lymphocytes % (Manual) (20-40) % Atypical Lymphs % % Monocytes % (Manual) (2-10) % Eosinophils % (Manual) (0.7-5.8) % Basophils % (Manual) (0.1-1.2) Manual Slide Review Platelet Estimate RBC Morph Comment Sodium (136-145) mEq/L Potassium (3.5-5.1) mEq/L Chloride (98-107) mEq/L Carbon Dioxide (21-32) mEq/L Anion Gap (5-15) BUN (7-18) mg/dL Creatinine (0.55-1.02) mg/dL Est Cr Clr Drug Dosing mL/min Estimated GFR (MDRD) (>60) mL/min BUN/Creatinine Ratio (14-18) Glucose (74-106) mg/dL Lactic Acid 0.8 (0.4-2.0) mmol/L Calcium (8.5-10.1) mg/dL Magnesium (1.8-2.4) mg/dl Total Bilirubin (0.2-1.0) mg/dL AST (15-37) U/L ALT (14-59) U/L Alkaline Phosphatase (46-116) U/L C-Reactive Protein (<1.0) mg/dL Total Protein (6.4-8.2) g/dl Albumin (3.4-5.0) g/dl Globulin gm/dL Albumin/Globulin Ratio (1-2) Lipase (73-393) U/L HCG, Qual (NEGATIVE) Urine Color Yellow (Yellow) Urine Appearance Clear (Clear) Urine pH 6.0 (5.0-8.0) Ur Specific [place] 1.015 (1.005-1.030) Urine Protein 1+ H (Negative) Urine Glucose (UA) Negative (Negative) Urine Ketones 2+ H (Negative) Urine Occult Blood Trace-lysed H (Negative) Urine Nitrite Negative (Negative) Urine Bilirubin Negative (Negative) Urine Urobilinogen 0.2 (0.2-1.0) Ur Leukocyte Esterase 1+ H (Negative) Urine RBC 5-10 H (0-5) /hpf Urine WBC 30-40 H (0-5) /hpf Ur Epithelial Cells 20-30 H (0-5) /hpf Ur Squamous Epith Cells (0-5) /hpf Urine Bacteria Moderate H (FEW) /hpf Urine Mucus Few (FEW) /hpf Acetaminophen (10-30) ug/mL Ketones 0.6 (0.0-0.3) mM Hepatitis C Antibody (NEGATIVE) Monoscreen (NEGATIVE) 08/15/18 08/15/18 08/15/18 Range/Units 09:02 09:02 09:02 WBC (3.98-10.04) K/mm3 RBC (3.98-5.22) M/mm3 Hgb (11.2-15.7) gm/L Hct (34.1-44.9) % MCV (79.4-94.8) fl MCH (25.6-32.2) pg MCHC (32.2-35.5) g/dl RDW Std Deviation (36.4-46.3) fL Plt Count (182-369) K/mm3 MPV (9.4-12.3) fl Neut % (Auto) (34.0-71.1) % Lymph % (Auto) (19.3-51.7) % [place] % (Auto) (4.7-12.5) % Eos % (Auto) (0.7-5.8) Baso % (Auto) (0.1-1.2) % Neut # (Auto) (1.56-6.13) K/mm3 Lymph # (Auto) (1.18-3.74) K/mm3 [place] # (Auto) (0.24-0.36) K/mm3 Eos # (Auto) (0.04-0.36) K/mm3 Baso # (Auto) (0.01-0.08) K/mm3 Neutrophils % (Manual) (40-60) % Band Neutrophils % (0-10) % Lymphocytes % (Manual) (20-40) % Atypical Lymphs % % Monocytes % (Manual) (2-10) % Eosinophils % (Manual) (0.7-5.8) % Basophils % (Manual) (0.1-1.2) Manual Slide Review Platelet Estimate RBC Morph Comment Sodium (136-145) mEq/L Potassium (3.5-5.1) mEq/L Chloride (98-107) mEq/L Carbon Dioxide (21-32) mEq/L Anion Gap (5-15) BUN (7-18) mg/dL Creatinine (0.55-1.02) mg/dL Est Cr Clr Drug Dosing mL/min Estimated GFR (MDRD) (>60) mL/min BUN/Creatinine Ratio (14-18) Glucose (74-106) mg/dL Lactic Acid (0.4-2.0) mmol/L Calcium (8.5-10.1) mg/dL Magnesium (1.8-2.4) mg/dl Total Bilirubin (0.2-1.0) mg/dL AST (15-37) U/L ALT (14-59) U/L Alkaline Phosphatase (46-116) U/L C-Reactive Protein (<1.0) mg/dL Total Protein (6.4-8.2) g/dl Albumin (3.4-5.0) g/dl Globulin gm/dL Albumin/Globulin Ratio (1-2) Lipase 53 L (73-393) U/L HCG, Qual (NEGATIVE) Urine Color (Yellow) Urine Appearance (Clear) Urine pH (5.0-8.0) Ur Specific [place] (1.005-1.030) Urine Protein (Negative) Urine Glucose (UA) (Negative) Urine Ketones (Negative) Urine Occult Blood (Negative) Urine Nitrite (Negative) Urine Bilirubin (Negative) Urine Urobilinogen (0.2-1.0) Ur Leukocyte Esterase (Negative) Urine RBC (0-5) /hpf Urine WBC (0-5) /hpf Ur Epithelial Cells (0-5) /hpf Ur Squamous Epith Cells (0-5) /hpf Urine Bacteria (FEW) /hpf Urine Mucus (FEW) /hpf Acetaminophen 0 L (10-30) ug/mL Ketones (0.0-0.3) mM Hepatitis C Antibody (NEGATIVE) Monoscreen Negative (NEGATIVE) 08/15/18 08/15/18 08/15/18 Range/Units 09:02 14:43 16:40 WBC (3.98-10.04) K/mm3 RBC (3.98-5.22) M/mm3 Hgb (11.2-15.7) gm/L Hct (34.1-44.9) % MCV (79.4-94.8) fl MCH (25.6-32.2) pg MCHC (32.2-35.5) g/dl RDW Std Deviation (36.4-46.3) fL Plt Count (182-369) K/mm3 MPV (9.4-12.3) fl Neut % (Auto) (34.0-71.1) % Lymph % (Auto) (19.3-51.7) % [place] % (Auto) (4.7-12.5) % Eos % (Auto) (0.7-5.8) Baso % (Auto) (0.1-1.2) % Neut # (Auto) (1.56-6.13) K/mm3 Lymph # (Auto) (1.18-3.74) K/mm3 [place] # (Auto) (0.24-0.36) K/mm3 Eos # (Auto) (0.04-0.36) K/mm3 Baso # (Auto) (0.01-0.08) K/mm3 Neutrophils % (Manual) (40-60) % Band Neutrophils % (0-10) % Lymphocytes % (Manual) (20-40) % Atypical Lymphs % % Monocytes % (Manual) (2-10) % Eosinophils % (Manual) (0.7-5.8) % Basophils % (Manual) (0.1-1.2) Manual Slide Review Platelet Estimate RBC Morph Comment Sodium 138 (136-145) mEq/L Potassium 3.6 (3.5-5.1) mEq/L Chloride 102 (98-107) mEq/L Carbon Dioxide 26 (21-32) mEq/L Anion Gap 13.6 (5-15) BUN 7 (7-18) mg/dL Creatinine 0.9 (0.55-1.02) mg/dL Est Cr Clr Drug Dosing 79.64 mL/min Estimated GFR (MDRD) > 60 (>60) mL/min BUN/Creatinine Ratio 7.8 L (14-18) Glucose 96 (74-106) mg/dL Lactic Acid (0.4-2.0) mmol/L Calcium 7.7 L (8.5-10.1) mg/dL Magnesium (1.8-2.4) mg/dl Total Bilirubin 0.5 (0.2-1.0) mg/dL AST 4149 H (15-37) U/L ALT 4813 H (14-59) U/L Alkaline Phosphatase 91 (46-116) U/L C-Reactive Protein (<1.0) mg/dL Total Protein 6.3 L (6.4-8.2) g/dl Albumin 2.9 L (3.4-5.0) g/dl Globulin 3.4 gm/dL Albumin/Globulin Ratio 0.9 L (1-2) Lipase (73-393) U/L HCG, Qual (NEGATIVE) Urine Color Yellow (Yellow) Urine Appearance Clear (Clear) Urine pH 6.0 (5.0-8.0) Ur Specific [place] 1.010 (1.005-1.030) Urine Protein 1+ H (Negative) Urine Glucose (UA) Negative (Negative) Urine Ketones Negative (Negative) Urine Occult Blood Negative (Negative) Urine Nitrite Negative (Negative) Urine Bilirubin Negative (Negative) Urine Urobilinogen 1.0 (0.2-1.0) Ur Leukocyte Esterase Negative (Negative) Urine RBC 0-5 (0-5) /hpf Urine WBC 0-5 (0-5) /hpf Ur Epithelial Cells (0-5) /hpf Ur Squamous Epith Cells 0-5 (0-5) /hpf Urine Bacteria Not seen (FEW) /hpf Urine Mucus Not seen (FEW) /hpf Acetaminophen (10-30) ug/mL Ketones (0.0-0.3) mM Hepatitis C Antibody Negative (NEGATIVE) Monoscreen (NEGATIVE) 08/16/18 08/16/18 Range/Units 04:20 04:20 WBC 3.39 L (3.98-10.04) K/mm3 RBC 4.21 (3.98-5.22) M/mm3 Hgb 12.4 D (11.2-15.7) gm/L Hct 37.8 (34.1-44.9) % MCV 89.8 (79.4-94.8) fl MCH 29.5 (25.6-32.2) pg MCHC 32.8 (32.2-35.5) g/dl RDW Std Deviation 45.4 (36.4-46.3) fL Plt Count 124 L (182-369) K/mm3 MPV 9.3 L (9.4-12.3) fl Neut % (Auto) 25.6 L (34.0-71.1) % Lymph % (Auto) 49.3 (19.3-51.7) % [place] % (Auto) 18.3 H (4.7-12.5) % Eos % (Auto) 2.1 (0.7-5.8) Baso % (Auto) 4.7 H (0.1-1.2) % Neut # (Auto) 0.87 L (1.56-6.13) K/mm3 Lymph # (Auto) 1.67 (1.18-3.74) K/mm3 [place] # (Auto) 0.62 H (0.24-0.36) K/mm3 Eos # (Auto) 0.07 (0.04-0.36) K/mm3 Baso # (Auto) 0.16 H (0.01-0.08) K/mm3 Neutrophils % (Manual) (40-60) % Band Neutrophils % (0-10) % Lymphocytes % (Manual) (20-40) % Atypical Lymphs % % Monocytes % (Manual) (2-10) % Eosinophils % (Manual) (0.7-5.8) % Basophils % (Manual) (0.1-1.2) Manual Slide Review Abnormal smear Platelet Estimate RBC Morph Comment Sodium 138 (136-145) mEq/L Potassium 3.6 (3.5-5.1) mEq/L Chloride 104 (98-107) mEq/L Carbon Dioxide 26 (21-32) mEq/L Anion Gap 11.6 (5-15) BUN 6 L (7-18) mg/dL Creatinine 0.8 (0.55-1.02) mg/dL Est Cr Clr Drug Dosing 89.60 mL/min Estimated GFR (MDRD) > 60 (>60) mL/min BUN/Creatinine Ratio 7.5 L (14-18) Glucose 86 (74-106) mg/dL Lactic Acid (0.4-2.0) mmol/L Calcium 7.7 L (8.5-10.1) mg/dL Magnesium 1.9 (1.8-2.4) mg/dl Total Bilirubin 0.5 (0.2-1.0) mg/dL AST 2224 H (15-37) U/L ALT 4457 H (14-59) U/L Alkaline Phosphatase 101 (46-116) U/L C-Reactive Protein 4.5 H* (<1.0) mg/dL Total Protein 6.3 L (6.4-8.2) g/dl Albumin 2.7 L (3.4-5.0) g/dl Globulin 3.6 gm/dL Albumin/Globulin Ratio 0.8 L (1-2) Lipase (73-393) U/L HCG, Qual (NEGATIVE) Urine Color (Yellow) Urine Appearance (Clear) Urine pH (5.0-8.0) Ur Specific [place] (1.005-1.030) Urine Protein (Negative) Urine Glucose (UA) (Negative) Urine Ketones (Negative) Urine Occult Blood (Negative) Urine Nitrite (Negative) Urine Bilirubin (Negative) Urine Urobilinogen (0.2-1.0) Ur Leukocyte Esterase (Negative) Urine RBC (0-5) /hpf Urine WBC (0-5) /hpf Ur Epithelial Cells (0-5) /hpf Ur Squamous Epith Cells (0-5) /hpf Urine Bacteria (FEW) /hpf Urine Mucus (FEW) /hpf Acetaminophen (10-30) ug/mL Ketones (0.0-0.3) mM Hepatitis C Antibody (NEGATIVE) Monoscreen (NEGATIVE) Med Orders - Current: Current Medications Lamotrigine (Lamotrigine) 400 mg PO BEDTIME [facility] Last Admin: 08/15/18 20:50 Dose: 400 mg Miscellaneous Information (Remove Patch) 1 ea TRDERM ONETIME ONE Stop: 08/16/18 15:31 Ondansetron HCl (Zofran Odt) 4 mg PO Q4H PRN PRN Reason: nausea, able to take PO Last Admin: 08/15/18 19:12 Dose: 4 mg Oxycodone HCl (Oxycodone) 5 mg PO Q6H PRN PRN Reason: Pain (moderate 4-6) Last Admin: 08/16/18 05:32 Dose: 5 mg Sodium Chloride (Saline Flush) 10 ml FLUSH ASDIRECTED PRN PRN Reason: Keep Vein Open Discontinued Medications Diatrizoate Meglum/Diatrizoate Sod (Gastrografin 37%) 90 ml PO ONETIME ONE Stop: 08/15/18 11:32 Last Admin: 08/15/18 11:40 Dose: 90 ml Hydromorphone HCl (Dilaudid) 0.5 mg IVPUSH ONETIME ONE Stop: 08/15/18 08:21 Last Admin: 08/15/18 08:37 Dose: 0.5 mg Hydromorphone HCl (Dilaudid) 0.5 mg IVPUSH ONETIME ONE Stop: 08/15/18 10:23 Last Admin: 08/15/18 10:42 Dose: 0.5 mg Dextrose/Sodium Chloride (Dextrose 5%-Normal Saline) 1,000 mls @ 999 mls/hr IV ASDIRECTED ROBEL Last Admin: 08/15/18 08:37 Dose: 999 mls/hr Dextrose/Lactated Ringer's (Dextrose 5%-Lactated Ringers) 1,000 mls @ 500 mls/ hr IV ASDIRECTED [facility] Last Admin: 08/15/18 12:45 Dose: 500 mls/hr Potassium Cl/Dextrose/Lact Ringer's (D5 Lr With 20 Meq Kcl) 1,000 mls @ 150 mls /hr IV ASDIRECTED [facility] Ceftriaxone Sodium 2 gm/ (Sodium Chloride) 100 mls @ 200 mls/hr IV Q24H [facility] Last Admin: 08/15/18 15:06 Dose: Not Given Potassium Chloride/Dextrose/Sod Cl (D5 Ns With 20 Meq Kcl) 1,000 mls @ 150 mls/ hr IV ASDIRECTED [facility] Magnesium Sulfate 2 gm/ Premix 50 mls @ 25 mls/hr IV ONETIME ONE Stop: 08/15/18 17:24 Last Admin: 08/15/18 16:01 Dose: 25 mls/hr Iohexol (Omnipaque-300) 100 ml IVPUSH ONETIME ONE Stop: 08/15/18 11:32 Last Admin: 08/15/18 11:38 Dose: 100 ml Metoclopramide HCl (Reglan) 7.5 mg IVPUSH ONETIME ONE Stop: 08/15/18 10:23 Last Admin: 08/15/18 10:40 Dose: 7.5 mg Nicotine (Habitrol) 21 mg TRDERM ONETIME ONE Stop: 08/15/18 12:27 Last Admin: 08/15/18 15:22 Dose: 21 mg Nicotine (Habitrol) 21 mg TRDERM ONETIME ONE Stop: 08/15/18 15:31 Last Admin: 08/15/18 15:28 Dose: Not Given Ondansetron HCl (Zofran) 4 mg IVPUSH ONETIME ONE Stop: 08/15/18 08:20 Last Admin: 08/15/18 08:35 Dose: 4 mg Sodium Chloride (Saline Flush) 10 ml FLUSH ONETIME ONE Stop: 08/15/18 11:32 Last Admin: 08/15/18 11:40 Dose: 10 ml - Exam General: Reports: Alert, Oriented HEENT: Reports: Pupils Equal, Pupils Reactive Neck: Reports: Supple Lungs: Reports: Clear to Auscultation, Normal Respiratory Effort Cardiovascular: Reports: Regular Rate, Regular Rhythm GI/Abdominal Exam: Normal Bowel Sounds, Soft, Non-Tender, No Organomegaly, No Distention Extremities: Normal Inspection, Normal Range of Motion, Non-Tender, No Pedal Edema Skin: Reports: Warm, Dry, Intact Neurological: Reports: No New Focal Deficit Psy/Mental Status: Reports: Alert, Normal Affect, Normal Mood
--- NOTE | 2018-08-16 09:03 | US ---
Limited abdominal ultrasound: Multiple real-time images were obtained of the right upper abdomen. Liver is echogenic. Hypoechoic area is noted close to the left portal vein. These findings are felt compatible with fatty infiltration with focal fatty sparing. Pancreas is incompletely seen. Visualized portions of the pancreas are within normal limits. Aorta shows no aneurysm. Inferior vena cava is patent. Portal vein shows normal hepatopedal flow. Gallbladder shows no shadowing gallstones. No gallbladder wall thickening or biliary duct dilatation is seen. Right kidney shows no hydronephrosis or mass. Right kidney has a length of 13.3 cm. Impression: 1. Findings compatible with fatty infiltration within the liver with focal fatty sparing next to the left portal vein. 2. No additional abnormality is identified on right upper quadrant abdominal ultrasound. Diagnostic code #3
== END 2018-08-16 09:53 | disposition home or self-care (01) | DRG 443 ==
LOC: JD.ED 07:49 → JD.MS 12:24
PROVIDERS: ADMIT Family Medicine; ATTEND Family Medicine
DX: B17.9 Acute viral hepatitis, unspecified (principal); F41.9 Anxiety disorder, unspecified; J45.909 Unspecified asthma, uncomplicated; G43.909 Migraine, unspecified, not intractable, without status migrainosus; F31.9 Bipolar disorder, unspecified; E66.9 Obesity, unspecified; E06.3 Autoimmune thyroiditis; F17.210 Nicotine dependence, cigarettes, uncomplicated; Z68.37 Body mass index [BMI] 37.0-37.9, adult; Z79.899 Other long term (current) drug therapy
CPT/HCPCS: 36415; 71045; 71045-26; 74177; 74177-26; 76705; 76705-26; 80053; 80074; 81001; 82009; 83516; 83605; 83690; 83735; 84703; 85007; 85025; 85027; 86038; 86140; 86308; 86645; 86665; 86803; 87040; 87086; 96361; 96374; 96375; 96376; 99285; 99285-25; A9270-GY; G0480; J1170; J2405; J2765; J3475; J7042; Q9963; Q9967

== ENCOUNTER 2019-02-20 07:12 | Day surgery (SDC) | payer MEDICAID ==
[~2019-02-20 07:12] MED LIST: Dexamethasone 4 MG/ML 5 ML MDV ONE; Ketamine 500 mg/10 ML MDV ONE; Ketorolac 30 MG/ML SDV ONE; Lidocaine 1% 4 ML ONE; Lidocaine 1%/Sod Bicarbonate in NS 8.4% 1 ML Syringe IDERM PRN; Ondansetron 4 MG/2 ML SDV ONE; Propofol 200 MG/20 ML SDV ONE; Sodium Chloride 0.9% 10 ML Syringe FLUSH PRN; ceFAZolin 1 GM Vial ONE; fentaNYL 250 MCG/5 ML SDV ONE
[2019-02-20] MEDS ORDERED: Lidocaine 1% with EPINEPHrine 1:100,000 20 ML MDV ONE (07:20)
[2019-02-20] MEDS: Lactated Ringers 1,000 ML IV SCH ×2 (07:30→10:02)
[2019-02-20] MEDS ORDERED: Scopolamine 1.5 MG Transdermal Patch TOP ONE (07:42)
--- NOTE | 2019-02-20 08:21 | PCM.PREANE ---
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 METS > 4.) Gastrointestinal: No Symptoms Neurological: No Symptoms Other: Reports: Liver Problems (History of hep A this year. LFTs trending down. Being followed. No serious concerns today.), Depression, Anxiety - Physical Assessment NPO Status Date: 02/19/19 NPO Status Time: 21:00 Vital Signs: Last Vital Signs Temp 36.6 C 02/20/19 07:20 Pulse 95 02/20/19 07:20 Resp 16 02/20/19 07:20 BP 123/82 02/20/19 07:20 Pulse Ox 96 02/20/19 07:20 Height: 5 ft 4 in Weight: 98.883 kg ASA Class: 2 Mental Status: Alert & Oriented x3 Airway Class: Mallampati = 3 Dentition: Reports: Normal Dentition Thyro-Mental Finger Breadths: 3 Mouth Opening Finger Breadths: 3 ROM/Head Extension: Full Lungs: Clear to Auscultation, Normal Respiratory Effort Cardiovascular: Regular Rate, Regular Rhythm - Lab Values: Laboratory Last Values WBC 4.42 K/mm3 (3.98-10.04) 02/20/19 07:25 RBC 4.48 M/mm3 (3.98-5.22) 02/20/19 07:25 Hgb 13.2 gm/dl (11.2-15.7) 02/20/19 07:25 Hct 39.6 % (34.1-44.9) 02/20/19 07:25 MCV 88.4 fl (79.4-94.8) 02/20/19 07:25 MCH 29.5 pg (25.6-32.2) 02/20/19 07:25 MCHC 33.3 g/dl (32.2-35.5) 02/20/19 07:25 RDW Std Deviation 42.4 fL (36.4-46.3) 02/20/19 07:25 Plt Count 270 K/mm3 (182-369) D 02/20/19 07:25 MPV 8.4 fl (9.4-12.3) L 02/20/19 07:25 Neut % (Auto) 46.3 % (34.0-71.1) 02/20/19 07:25 Lymph % (Auto) 37.6 % (19.3-51.7) 02/20/19 07:25 [place] % (Auto) 12.0 % (4.7-12.5) 02/20/19 07:25 Eos % (Auto) 3.6 (0.7-5.8) 02/20/19 07:25 Baso % (Auto) 0.5 % (0.1-1.2) 02/20/19 07:25 Neut # (Auto) 2.05 K/mm3 (1.56-6.13) 02/20/19 07:25 Lymph # (Auto) 1.66 K/mm3 (1.18-3.74) 02/20/19 07:25 [place] # (Auto) 0.53 K/mm3 (0.24-0.36) H 02/20/19 07:25 Eos # (Auto) 0.16 K/mm3 (0.04-0.36) 02/20/19 07:25 Baso # (Auto) 0.02 K/mm3 (0.01-0.08) 02/20/19 07:25 Sodium 138 mEq/L (136-145) 02/20/19 07:25 Potassium 4.1 mEq/L (3.5-5.1) 02/20/19 07:25 Chloride 105 mEq/L (98-107) 02/20/19 07:25 Carbon Dioxide 24 mEq/L (21-32) 02/20/19 07:25 Anion Gap 13.1 (5-15) 02/20/19 07:25 BUN 8 mg/dL (7-18) 02/20/19 07:25 Creatinine 0.8 mg/dL (0.55-1.02) 02/20/19 07:25 Est Cr Clr Drug Dosing 88.79 mL/min 02/20/19 07:25 Estimated GFR (MDRD) > 60 mL/min (>60) 02/20/19 07:25 BUN/Creatinine Ratio 10.0 (14-18) L 02/20/19 07:25 Glucose 103 mg/dL (74-106) 02/20/19 07:25 Calcium 8.6 mg/dL (8.5-10.1) 02/20/19 07:25 Urine HCG, Qual Negative (NEGATIVE) 02/20/19 07:16 - Allergies Allergies/Adverse Reactions: Allergies Allergy/AdvReac Type Severity Reaction Status Date / Time No Known Allergies Allergy Verified 02/19/19 14:09 - Blood Blood Available: No - Anesthesia Plan Pre-Op Medication Ordered: Other (scopolamine patch placed by nursing) - Acknowledgements Anesthesia Type Planned: General Anesthesia Pt an Appropriate Candidate for the Planned Anesthesia: Yes Alternatives and Risks of Anesthesia Discussed w Pt/Guardian: Yes Pt/Guardian Understands and Agrees with Anesthesia Plan: Yes PreAnesthesia Questionnaire - Past Health History Medical/Surgical History: Denies Medical/Surgical History HEENT History: Reports: None Cardiovascular History: Reports: None Respiratory History: Reports: Asthma Gastrointestinal History: Reports: Hepatitis Genitourinary History: Reports: None NEW BUSINESS CLERK History: Reports: Musculoskeletal History: Reports: None Neurological History: Reports: Migraines Psychiatric History: Reports: Bipolar, Depression Endocrine/Metabolic History: Reports: Obesity/BMI 30+ Other Endocrine/Metabolic History: Hashimotos- thyroid disorder Hematologic History: Reports: None Immunologic History: Reports: None Oncologic (Cancer) History: Reports: None Dermatologic History: Reports: None - Infectious Disease History Infectious Disease History: Reports: Chicken Pox, Mononucleosis - Past Surgical History Head Surgeries/Procedures: Reports: None HEENT Surgical History: Reports: Oral Surgery Respiratory Surgical History: Reports: None GI Surgical History: Reports: None Female Surgical History: Reports: Oophorectomy Male Surgical History: Reports: None Endocrine Surgical History: Reports: None Neurological Surgical History: Reports: None Musculoskeletal Surgical History: Reports: None Oncologic Surgical History: Reports: None - SUBSTANCE USE Smoking Status *Q: Current Every Day Smoker Recreational Drug Use History: Yes Recreational Drug Type: Reports: Methamphetamine - HOME MEDS Home Medications: Home Meds lamoTRIgine [Lamotrigine] 400 mg PO BEDTIME #120 tablet 08/16/18 [Rx] FLUoxetine HCl [Prozac] 20 mg PO DAILY 02/19/19 [History] - CURRENT (IN HOUSE) MEDS Current Meds: Current Medications Lactated Ringer's (Ringers, Lactated) 1,000 mls @ 125 mls/hr IV ASDIRECTED ROBEL Stop: 02/20/19 23:00 Last Admin: 02/20/19 07:30 Dose: 125 mls/hr Lidocaine/Sodium Bicarbonate (Buffered Lidocaine 1% In Ns 8.4%) 0.25 ml IDERM ONETIME PRN PRN Reason: Prior to IV Start Stop: 02/20/19 18:00 Last Admin: 02/20/19 07:29 Dose: 0.25 ml Sodium Chloride (Saline Flush) 10 ml FLUSH ASDIRECTED PRN PRN Reason: Keep Vein Open Stop: 02/20/19 18:00 Discontinued Medications Cefazolin Sodium (Ancef) Confirm Administered Dose 2 gm .ROUTE .STK-MED ONE Stop: 02/20/19 07:09 Dexamethasone (Dexamethasone) Confirm Administered Dose 20 mg .ROUTE .STK-MED ONE Stop: 02/20/19 07:09 Fentanyl (Sublimaze) Confirm Administered Dose 250 mcg .ROUTE .STK-MED ONE Stop: 02/20/19 07:09 Glycopyrrolate () Confirm Administered Dose 1 mg .ROUTE .STK-MED ONE Stop: 02/20/19 07:10 Lidocaine HCl (Xylocaine-Mpf 1%) Confirm Administered Dose 4 mls @ as directed .ROUTE .STK-MED ONE Stop: 02/20/19 07:09 Ketamine HCl (Ketalar) Confirm Administered Dose 500 mg .ROUTE .STK-MED ONE Stop: 02/20/19 07:10 Ketorolac Tromethamine (Toradol) Confirm Administered Dose 30 mg .ROUTE .STK- MED ONE Stop: 02/20/19 07:09 Lidocaine/Epinephrine (Xylocaine 1% With Epinephrine 1:100,000) Confirm Administered Dose 20 ml .ROUTE .STK-MED ONE Stop: 02/20/19 07:21 Ondansetron HCl (Zofran) Confirm Administered Dose 4 mg .ROUTE .STK-MED ONE Stop: 02/20/19 07:09 Propofol (Diprivan 20 Ml) Confirm Administered Dose 200 mg .ROUTE .STK-MED ONE Stop: 02/20/19 07:09 Scopolamine (Transderm-Scop) 1.5 mg TOP ONETIME ONE Stop: 02/20/19 07:43 Last Admin: 02/20/19 07:51 Dose: 1.5 mg
[2019-02-20] MEDS ORDERED: Morphine 10 MG/ML SDV ONE (08:22)
[2019-02-20] MEDS ORDERED: ePHEDrine/Normal Saline 25 MG/5 ML Syringe ONE (08:28)
[2019-02-20] MEDS ORDERED: Neostigmine Methylsulfate 1 MG/ML 5 ML Syringe ONE (09:03)
--- NOTE | 2019-02-20 09:16 | PCM.OPNOTE ---
- General Post-Op/Procedure Note Date of Surgery/Procedure: 02/20/19 Operative Procedure(s): Total vaginal hysterectomy Findings: SVE with mobile, mid-position uterus. Not able to visualize remaining ovary after completion of procedure Pre Op Diagnosis: Post coital bleeding. Dysfucntional uterine bleeding Post-Op Diagnosis: Same Anesthesia Technique: General ET Tube Primary Surgeon: Melissa Herrera Secondary Surgeon: Marilia Polk Anesthesia Provider: Juan Potter Reason Zyglo Inspector Was Necessary: BMI of patient. Speed/safety of procedure. Pathology: Cervix and uterus sent to pathology for further evaluation. Fluid Replacement, Intraop: 1,600 Output, Urine Amount: 100 EBL in mLs: 100 Complications: None Condition: Good Free Text/Narrative:: The risks, benefits, indications, potential complications, and alternatives were explained to the patient and informed consent obtained. The patient was taken to the Operating Room where general anesthesia was induced without complication and found to be adequate. The patient was placed in dorsal lithotomy with Yousuf stirrups and an exam under anesthesia revealed the findings detailed above. The patient was then prepped and draped in the usual sterile fashion. Boswell catheter placed into bladder. A weighted speculum was placed in the vagina, and the cervix was grasped with a tooth tenaculum. The cervix was injected circumferentially with about 15 cc of 1% lidocaine with dilute epinephrine. The cervix was then circumferentially incised with a scalpel. The posterior cul-de-sac was entered sharply without difficulty. An 0-Vicryl pop-off suture was placed posteriorly to include the posterior vaginal mucosa and the posterior peritoneum. This was tagged and left long. The short weighted speculum was replaced with a long weighted speculum into the peritoneal cavity posteriorly. The bladder was dissected away from the pubovesical cervical fascia anteriorly with a sponge and blunt dissection. The uterosacral ligaments were grasped on either side with the Ligasure, cauterized, and transected. Hemostasis was assured. A raytec was used for further blunt dissection of the bladder away from the pubovesical cervical fascia and then the anterior cul de sac was entered sharply with Metzenbaum scissors. The cardinal ligaments were then serially clamped on both sides with the Ligasure, cauterized, and transected. The uterine arteries were then clamped with the Ligasure, cauterized, and transected. Hemostasis was adequate. Both cornua were then clamped, cauterized, and transected and the uterus was removed. Hemostasis was noted. The posterior peritoneum was closed with a running, locked suture of 0 vicryl. The vaginal cuff was closed in a running locked fashion with 0-Vicryl. Hemostasis was noted. Boswell catheter removed. All sponge, lap, needle, and instrument counts were correct x 2. The patient tolerated the procedure well and there were no complications.
--- NOTE | 2019-02-20 09:29 | PCM.POSTAN ---
POST ANESTHESIA ASSESSMENT - MENTAL STATUS Mental Status: Alert, Oriented - VITAL SIGNS Vital Signs: Last Vital Signs Temp 36.6 C 02/20/19 07:20 Pulse 95 02/20/19 07:20 Resp 16 02/20/19 07:20 BP 123/82 02/20/19 07:20 Pulse Ox 96 02/20/19 07:20 - RESPIRATORY Respiratory Status: Respiratory Rate WNL, Airway Patent, O2 Saturation Stable ( 3L NC O2 upon arrival to keep SpO2 > 90%) - CARDIOVASCULAR CV Status: Blood Pressure Stable, Elevated Pulse Rate (Possibly related to glycopyrrolate administration at end of case or some component of pain.) - GASTROINTESTINAL GI Status: No Symptoms - PAIN Pain Score: 5 - POST OP HYDRATION Hydration Status: Adequate & Stable - OBSERVATIONS Free Text/Narrative:: Patient with transient desaturation prior to extubation surrrounding late IV fentanyl and reversal agents. Resolved easily with pressure support and BMV assistance. RR and Vt stablized in OR prior to suctioning and extubation. Routine transfer to PACU with handoff to RN. Mild tachycardia will be observed and treated if necessary. Pain treated with IV narcotic by OPTICAL DESIGN ENGINEER. No complication. No concerns at this time.
[2019-02-20] MEDS ORDERED: HYDROmorphone 0.5 MG/0.5 ML Syringe IVPUSH PRN (09:30)
[2019-02-20] MEDS ORDERED: fentaNYL 100 MCG/2 ML SDV IVPUSH PRN (09:30)
[2019-02-20] MEDS ORDERED: Acetaminophen/oxyCODONE 325-5 MG Tab PO PRN (09:34)
[2019-02-20] MEDS ORDERED: Ondansetron 4 MG/2 ML SDV IVPUSH PRN (09:35)
--- NOTE | 2019-02-20 10:49 | PCM48HPAN ---
Post Anesthesia Note - EVALUATION WITHIN 48HRS OF ANESTHETIC Vital Signs in Normal Range: Yes Patient Participated in Evaluation: Yes Respiratory Function Stable: Yes Airway Patent: Yes Cardiovascular Function Stable: Yes Hydration Status Stable: Yes Pain Control Satisfactory: Yes Nausea and Vomiting Control Satisfactory: Yes Mental Status Recovered: Yes Vital Signs: Last Vital Signs Temp 36.8 C 02/20/19 10:15 Pulse 109 H 02/20/19 10:30 Resp 14 02/20/19 10:30 BP 124/70 02/20/19 10:30 Pulse Ox 92 L 02/20/19 10:30 - COMMENTS/OBSERVATIONS Free Text/Narrative:: Patient has a little "light-headedness" otherwise doing well. Sleepy. But otherwise doing well. No concerns at this time.
[2019-02-20] MEDS ORDERED: Rocuronium 50 MG/5 ML Vial ONE (11:34)
== END 2019-02-20 12:14 | disposition home or self-care (01) ==
LOC: JD.SDS 07:12
PROVIDERS: ATTEND Obstetrics & Gynecology
DX: N72 Inflammatory disease of cervix uteri (principal); N87.0 Mild cervical dysplasia; N80.0 Endometriosis of uterus; D26.9 Other benign neoplasm of uterus, unspecified; N73.6 Female pelvic peritoneal adhesions (postinfective); J45.909 Unspecified asthma, uncomplicated; G43.909 Migraine, unspecified, not intractable, without status migrainosus; E66.9 Obesity, unspecified; F17.210 Nicotine dependence, cigarettes, uncomplicated; F41.9 Anxiety disorder, unspecified; F32.9 Major depressive disorder, single episode, unspecified; Z68.38 Body mass index [BMI] 38.0-38.9, adult
CPT/HCPCS: 36415; 58260; 80048; 81025; 85025; 86850; 86900; 86901; A9270; J0690; J1100; J1885; J2001; J2270; J2405; J2704; J2710; J3010; J7050; J7120; 00944

== ENCOUNTER 2019-03-09 13:46 | Emergency (ER) | payer MEDICAID ==
[2019-03-09] MEDS ORDERED: Sodium Chloride 0.9% 1,000 ML IV ONE (14:11)
[2019-03-09] MEDS ORDERED: Morphine 4 MG/ML Syringe IVPUSH ONE (14:11)
[2019-03-09] MEDS ORDERED: Sodium Chloride 0.9% 10 ML Syringe FLUSH PRN (14:11)
[2019-03-09] MEDS ORDERED: Ondansetron 4 MG/2 ML SDV IVPUSH ONE (14:11)
--- NOTE | 2019-03-09 14:14 | EDM.PDOC ---
ED HPI GENERAL MEDICAL PROBLEM - General Chief Complaint: Abdominal Pain Stated Complaint: ABDOMINAL PAIN Time Seen by Provider: 03/09/19 14:02 Source of Information: Reports: Patient History Limitations: Reports: No Limitations - History of Present Illness INITIAL COMMENTS - FREE TEXT/NARRATIVE: Patient is an unfortunate 28-year-old female who presents emergency Department today with complaint of epigastric abdominal pain. Patient reports that she has had poor appetite for the past month she had a hysterectomy done on 02/20/2019. Patient reports that she has mild right lower quadrant left lower quadrant abdominal pain has moderate epigastric abdominal pain patient reports the pain worsens after she eats. Patient reports that she just doesn't feel like eating has had positive nausea for which she has been taking Zofran at home which helps of the nausea no vomiting has had mild diarrhea no recent anabiotic use no known bad foods no recent travel reports the pain as a crampy- type pain and only worsens or if she needs nothing makes the pain better Treatments VEGETABLE CUTTER: Reports: Acetaminophen Other Treatments VEGETABLE CUTTER: this am- not sure of the time Epigastric Pain Score (Numeric/FACES): 6 - Related Data Allergies Allergy/AdvReac Type Severity Reaction Status Date / Time No Known Allergies Allergy Verified 02/19/19 14:09 Home Meds: Home Meds lamoTRIgine [Lamotrigine] 400 mg PO BEDTIME #120 tablet 08/16/18 [Rx] FLUoxetine HCl [Prozac] 20 mg PO DAILY 02/19/19 [History] Acetaminophen/oxyCODONE [Percocet 325-5 MG] 1 - 2 tab PO Q6HR PRN #20 tab [Rx] Ibuprofen 600 mg PO Q6H PRN #60 tablet 02/20/19 [Rx] Past Medical History - Past Health History Medical/Surgical History: Denies Medical/Surgical History HEENT History: Reports: None Cardiovascular History: Reports: None Respiratory History: Reports: Asthma Gastrointestinal History: Reports: Hepatitis Genitourinary History: Reports: None PENCIL SORTER History: Reports: , Other (See Below) Other PENCIL SORTER History: hysterectomy 02/20/19 Musculoskeletal History: Reports: None Neurological History: Reports: Migraines Psychiatric History: Reports: Bipolar, Depression Endocrine/Metabolic History: Reports: Obesity/BMI 30+ Other Endocrine/Metabolic History: Hashimotos- thyroid disorder Hematologic History: Reports: None Immunologic History: Reports: None Oncologic (Cancer) History: Reports: None Dermatologic History: Reports: None - Infectious Disease History Infectious Disease History: Reports: Chicken Pox, Mononucleosis - Past Surgical History Head Surgeries/Procedures: Reports: None HEENT Surgical History: Reports: Oral Surgery Respiratory Surgical History: Reports: None GI Surgical History: Reports: None Female Surgical History: Reports: Oophorectomy Endocrine Surgical History: Reports: None Neurological Surgical History: Reports: None Musculoskeletal Surgical History: Reports: None Oncologic Surgical History: Reports: None Social & Family History - Family History Family Medical History: Noncontributory Oncologic: Reports: Breast Other Oncologic Family History: mother anal cancer, grandma breast cancer, maternal grandmother sister, grandpa sinus cancer - Tobacco Use Smoking Status *Q: Current Every Day Smoker Years of Tobacco use: 18 Packs/Tins Daily: 0.5 - Caffeine Use Caffeine Use: Reports: Coffee Other Caffeine Use: Half a pot of coffee per day - Recreational Drug Use Recreational Drug Use: No - Living Situation & Occupation Living situation: Reports: , with Spouse, with Family (3 kids) Occupation: Unemployed ED ROS GENERAL - Review of Systems Review Of Systems: See Below Constitutional: Denies: Fever, Chills GI/Abdominal: Reports: Abdominal Pain, Diarrhea, Nausea. Denies: Hematemesis, Hematochezia, Melena, Vomiting ED EXAM, GI/ABD - Physical Exam Exam: See Below Exam Limited By: No Limitations General Appearance: Alert, WD/WN, Mild Distress Nose: Normal Inspection Throat/Mouth: Normal Inspection, Normal Lips, Normal Teeth, Normal Gums, Normal Oropharynx, Normal Voice, No Airway Compromise Head: Atraumatic, Normocephalic Neck: Normal Inspection, Supple, Non-Tender, Full Range of Motion Respiratory/Chest: No Respiratory Distress, Lungs Clear, Normal Breath Sounds, No Accessory Muscle Use, Chest Non-Tender Cardiovascular: Normal Peripheral Pulses, Regular Rate, Rhythm, No Edema, No Gallop, No JVD, No Murmur, No Rub GI/Abdominal Exam: Normal Bowel Sounds, Soft, Tender (Moderate epigastric tenderness mild right lower quadrant mild left lower quadrant tenderness) Back Exam: Normal Inspection, Full Range of Motion, NT Extremities: Normal Inspection, Normal Range of Motion, Non-Tender, Normal Capillary Refill, No Pedal Edema Neurological: Alert Skin Exam: Warm, Dry, No Rash Course - Vital Signs Last Recorded V/S: Last Vital Signs Temp 97.6 F 03/09/19 13:57 Pulse 90 03/09/19 13:57 Resp 18 03/09/19 13:57 BP 143/99 H 03/09/19 13:57 Pulse Ox 97 03/09/19 13:57 - Orders/Labs/Meds Orders: Active Orders 24 hr Category Date Time Status CULTURE URINE [RM] Stat Lab 03/09/19 14:42 Received Sodium Chloride 0.9% [Saline Flush] Med 03/09/19 14:11 Active 10 ml FLUSH ASDIRECTED PRN Saline Lock Insert [OM.PC] Stat Oth 03/09/19 14:11 Ordered Medication Orders Sodium Chloride (Saline Flush) 10 ml FLUSH ASDIRECTED PRN PRN Reason: Keep Vein Open Last Admin: 03/09/19 14:32 Dose: 10 ml Labs: Laboratory Tests 03/09/19 03/09/19 03/09/19 Range/Units 14:25 14:25 14:42 WBC 5.42 (3.98-10.04) K/mm3 RBC 4.67 (3.98-5.22) M/mm3 Hgb 13.4 (11.2-15.7) gm/dl Hct 40.6 (34.1-44.9) % MCV 86.9 (79.4-94.8) fl MCH 28.7 (25.6-32.2) pg MCHC 33.0 (32.2-35.5) g/dl RDW Std Deviation 39.4 (36.4-46.3) fL Plt Count 300 (182-369) K/mm3 MPV 8.4 L (9.4-12.3) fl Neut % (Auto) 56.4 (34.0-71.1) % Lymph % (Auto) 29.5 (19.3-51.7) % [place] % (Auto) 12.2 (4.7-12.5) % Eos % (Auto) 1.7 (0.7-5.8) Baso % (Auto) 0.2 (0.1-1.2) % Neut # (Auto) 3.06 (1.56-6.13) K/mm3 Lymph # (Auto) 1.60 (1.18-3.74) K/mm3 [place] # (Auto) 0.66 H (0.24-0.36) K/mm3 Eos # (Auto) 0.09 (0.04-0.36) K/mm3 Baso # (Auto) 0.01 (0.01-0.08) K/mm3 Sodium 140 (136-145) mEq/L Potassium 4.1 (3.5-5.1) mEq/L Chloride 103 (98-107) mEq/L Carbon Dioxide 24 (21-32) mEq/L Anion Gap 17.1 H (5-15) BUN 9 (7-18) mg/dL Creatinine 0.9 (0.55-1.02) mg/dL Est Cr Clr Drug Dosing 78.93 mL/min Estimated GFR (MDRD) > 60 (>60) mL/min BUN/Creatinine Ratio 10.0 L (14-18) Glucose 92 (74-106) mg/dL Calcium 9.2 (8.5-10.1) mg/dL Total Bilirubin 0.4 (0.2-1.0) mg/dL AST 34 (15-37) U/L ALT 70 H (14-59) U/L Alkaline Phosphatase 61 (46-116) U/L Total Protein 8.2 (6.4-8.2) g/dl Albumin 4.0 (3.4-5.0) g/dl Globulin 4.2 gm/dL Albumin/Globulin Ratio 1.0 (1-2) Lipase 83 (73-393) U/L Urine Color Yellow (Yellow) Urine Appearance Clear (Clear) Urine pH 7.0 (5.0-8.0) Ur Specific [place] 1.015 (1.005-1.030) Urine Protein Negative (Negative) Urine Glucose (UA) Negative (Negative) Urine Ketones Trace H (Negative) Urine Occult Blood Trace-lysed H (Negative) Urine Nitrite Negative (Negative) Urine Bilirubin Negative (Negative) Urine Urobilinogen 0.2 (0.2-1.0) Ur Leukocyte Esterase Trace H (Negative) Urine RBC 0-5 (0-5) /hpf Urine WBC 0-5 (0-5) /hpf Ur Epithelial Cells 0-5 (0-5) /hpf Urine Bacteria Rare (FEW) /hpf Urine Mucus Not seen (FEW) /hpf Meds: Medications Generic Name Dose Route Start Last Admin Trade Name Sander PRN Reason Stop Dose Admin Sodium Chloride 10 ml 03/09/19 14:11 03/09/19 14:32 Saline Flush FLUSH 10 ml ASDIRECTED PRN Administration Keep Vein Open Discontinued Medications Generic Name Dose Route Start Last Admin Trade Name Sander PRN Reason Stop Dose Admin Al Hydroxide/Mg Hydroxide 30 0 ml 03/09/19 15:11 ml/ Lidocaine HCl 15 ml PO 03/09/19 15:12 ONETIME ONE Sodium Chloride 1,000 mls @ 1,000 mls/hr 03/09/19 14:11 03/09/19 14:27 Normal Saline IV 03/09/19 15:10 1,000 mls/hr ONETIME ONE Administration Morphine Sulfate 4 mg 03/09/19 14:11 03/09/19 14:28 Morphine IVPUSH 03/09/19 14:12 4 mg ONETIME ONE Administration Ondansetron HCl 4 mg 03/09/19 14:11 03/09/19 14:28 Zofran IVPUSH 03/09/19 14:12 4 mg ONETIME ONE Administration Pantoprazole Sodium 40 mg 03/09/19 15:11 Protonix Iv IVPUSH 03/09/19 15:12 ONETIME ONE - Re-Assessments/Exams Free Text/Narrative Re-Assessment/Exam: 03/09/19 15:40 Labs show no clinically significant abnormalities, it is possible patient has a calculus cholecystitis, we will treat has GERD and outpatient follow-up outpatient with PCP if pain continues to consider HIDA scan Departure - Departure Time of Disposition: 15:41 Disposition: Home, Self-Care 01 Clinical Impression: GERD without esophagitis Abdominal pain Qualifiers: Abdominal location: epigastric Qualified Code(s): R10.13 - Epigastric pain - Discharge Information Instructions: Indigestion, [id number] Referrals: PCP,None [Primary Care Provider] - Forms: ED Department Discharge Additional Instructions: Home, rest, Prilosec OTC daily for one month, Tums as needed for pain, return as needed for worsening condition Sepsis Event Note - Evaluation Sepsis Screening Result: No Definite Risk - Focused Exam Vital Signs: Vital Signs Temp Pulse Resp BP Pulse Ox 03/09/19 13:57 97.6 F 90 18 143/99 H 97 Date Exam was Performed: 03/09/19 Time Exam was Performed: 15:40 - My Orders Last 24 Hours: My Active Orders 03/09/19 14:11 Sodium Chloride 0.9% [Saline Flush] 10 ml FLUSH ASDIRECTED PRN Saline Lock Insert [OM.PC] Stat 03/09/19 14:42 CULTURE URINE [RM] Stat - Assessment/Plan Last 24 Hours: My Active Orders 03/09/19 14:11 Sodium Chloride 0.9% [Saline Flush] 10 ml FLUSH ASDIRECTED PRN Saline Lock Insert [OM.PC] Stat 03/09/19 14:42 CULTURE URINE [RM] Stat
[2019-03-09] MEDS ORDERED: Pantoprazole 40 MG Vial IVPUSH ONE (15:11)
[2019-03-09] MEDS ORDERED: Alum Hydrox/Mag Hydrox/Simeth 30 ML, Lidocaine 2% 15 ML PO ONE ×2 (15:11)
== END 2019-03-09 16:05 | disposition home or self-care (01) ==
LOC: JD.ED 13:46
DX: K21.9 Gastro-esophageal reflux disease without esophagitis (principal); F17.210 Nicotine dependence, cigarettes, uncomplicated; E66.9 Obesity, unspecified; J45.909 Unspecified asthma, uncomplicated; F32.9 Major depressive disorder, single episode, unspecified; Z79.899 Other long term (current) drug therapy
CPT/HCPCS: 36415; 80053; 81001; 83690; 85025; 87086; 96361; 96374; 96375; 99283; 99284-25; A9270-GY; C9113; J2270; J2405; J7030